=== PATIENT | female | born 1950 | race Caucasian/White ===

== ENCOUNTER 2017-08-15 17:50 | Inpatient (IN) | payer OTHER ==
[~2017-08-15] VITALS: Ht 162.6 cm; Wt 87.7 kg
[~2017-08-15 17:50] MED LIST: ACTOS15 MG PO; ALBUTEROL0.09 MG/A1 INH; BYDUREON P2 MG/0.65 SC; CLARITIN10 M1 PO; CRESTOR40 M2 PO; CYCLOBENZAPRINE10 M1 PO; FENOFIBRATE145 M1 PO; FISH OIL CONCEN1 SGL PO; FUROSEMIDE40 M1 PO; GLIPIZIDE ER2.5 MG PO; GLUCOPHAGE1000 M1 PO; IBUPROFEN800 M1 PO; JANUVIA100 M1 PO; JARDIANCE10 M1 PO; LASIX20 MG PO; LEVAQUIN500 MG PO; LISINOPRIL20 M1 PO; MUCINEX600 M1 PO; NORVASC5 M1 PO; POTASSIUM CHLO20 ME2 PO; TAMIFLU 75MG75 MG PO; TESSALON PERLE100 MG PO; ZITHROMAX Z-PA250 M1 PO
--- NOTE | 2017-08-15 17:59 | ED AMS/SEIZURE/WEAK/DIZZY ---
History of Present Illness General Chief Complaint: Altered Mental Status Stated Complaint: ALTERED MENTAL STATUS Source: patient, family, old records Exam Limitations: clinical condition Allergies Coded Allergies: adhesive (ITCHING 01/21/16) ampicillin (RASH 01/21/16) dulaglutide (From TRULICITY) (PANCREATITIS 08/15/17) lanolin (RASH 08/15/17) wool (RASH 08/15/17) Reconcile Medications Amlodipine Besylate (Norvasc) 5 MG TABLET 1 TAB PO DAILY BP (Reported) Beta-Carotene(A) W-C & E/Min (Vision Vitamins) 1 EACH TABLET 1 TAB PO BID SUPPLEMENT (Reported) Calcium Carbonate/Vitamin D3 (Calcium 500 + D Tablet) (Unknown Strength) TABLET (Unknown Dose) PO BID SUPPLEMENT (Reported) Clotrimazole/Betamethasone Dip (Clotrimazole-Betamethasone Crm) 1 %-0.05 % CREAM..G. 1 BERTIN TOP BID VAGINAL AREA (Reported) apply to affected area(s) Empagliflozin (Jardiance) 25 MG TABLET 1 TAB PO DAILY DM (Reported) Fenofibrate Nanocrystallized (Fenofibrate) 145 MG TABLET 1 TAB PO DAILY CHOLESTEROL (Reported) Furosemide 40 MG TABLET 1 TAB PO DAILY WATER PILL (Reported) Guaifenesin (Mucinex) 600 MG TAB.ER.12H 1 TAB PO BID MUCUS (Reported) Insulin Glargine,Hum.rec.anlog (Toujeo Solostar) 300 UNIT/ML (1.5 ML) INSULN.PEN 26 UNITS SC QPM DM (Reported) Lansoprazole (Prevacid) (Unknown Strength) CAPSULE.DR (Unknown Dose) PO DAILY GI (Reported) Lisinopril 40 MG TABLET 1 TAB PO DAILY BP (Reported) Loratadine (Claritin) 10 MG TABLET 1 TAB PO DAILY ALLERGIES (Reported) Metformin HCl (Glucophage) 1,000 MG TABLET 1 TAB PO BID DM (Reported) Multiple Vitamin (Multivitamins) 1 EACH TABLET 1 TAB PO DAILY SUPPLEMENT ( Reported) Potassium Chloride 20 MEQ TAB.ER.PRT 1 TAB PO DAILY SUPPLEMENT (Reported) Rosuvastatin Calcium (Crestor) 40 MG TABLET 1 TAB PO DAILY CHOLESTEROL ( Reported) Sitagliptin Phosphate (Januvia) 100 MG TABLET 1 TAB PO DAILY DM (Reported) Triage Note: PT ASSISTED OFF HER 'S CAR SHE IS UNABLE TO AMBULATE. BROUGHT HER IN FOR EVALUATION SECONDARY TO AMS X 2 DAYS NOW. Triage Nurses Notes Reviewed? yes Onset: Abrupt Duration: day(s): (2), constant, getting worse Timing: recent history Injury Environment: home Severity: severe Severity Numbers: 10 No Modifying Factors: none Associated Symptoms: DIARRHEA HPI: 67 Year old female with past medical history of diabetes, hypertension, pancreatitis, and hyperlipidemia presents to ER for evaluation brought in by her who noted that the patient has been more lethargic over the past 2 days. The patient's states that she is babysitting grandchildren yesterday however she was not caring for them as she normally was, again today they noted that she was lethargic and not caring for herself and she had diarrhea this is unlike her no history of similar episodes in the past. On arrival Medardo denies any complaints denies pain she is oriented times person only (Shamar Hou) Vital Signs & Intake/Output Vital Signs & Intake/Output Vital Signs Date Time Temp Pulse Resp B/P B/P Pulse O2 O2 Flow FiO2 Mean Ox Delivery Rate 08/15 2012 101.8 94 18 129/58 96 Nasal 2.0L Cannula 08/15 1906 102.6 08/15 1906 99 95 Nasal 2.0L Cannula 08/15 1831 Nasal 2.0L Cannula 08/15 1805 103.1 08/15 1753 103.1 111 15 164/69 89 Room Air (Dez Goncalves DO) Past History Travel History Traveled to [place] past 21 day No Medical History Any Pertinent Medical History? see below for history Cardiovascular: hypertension, hyperlipidemia Endocrine: diabetes Surgical History Surgical History: non-contributory Psychosocial History Who do you live with Spouse Services at Home None What is your primary language Turkish Tobacco Use: Never used Family History Hx Contributory? No (Shamar Hou) Review of Systems Review of Systems Constitutional: Reports: see HPI. Comments Review of systems: OBTAINED VIA Constitutional, no chills no fever, (+) malaise no weight loss HEENT: no sore throat no congestion, no ear pain Cardiovascular: No chest pain , no palpitation Skin: no rashes, no change in skin Respiratory: No dyspnea no cough GI: No nausea no vomiting, no diarrhea, no bloating/constipation : No dysuria No hematuria, no frequency Muscle skeletal: No joint pain, no back pain, no neck pain, Neurologic: , no headache Heme/endocrine: No bruising (Renita BUSH,Shamar) Physical Exam Physical Exam General Appearance: well developed/nourished, awake, lethargic Comments: Well-developed well-nourished person in moderate acute distress HEENT: Normal EENT exam; PERRL, EOMI, no nystagmus. HEAD is atraumatic. moist mucous membranes. Neck: Supple, no neck stiffness normal range of motion, negative Kernig's or Brudzinski's Back:Full range of motion Cardiovascular: Regular rate and rhythms no murmurs rub Respiratory: Chest nontender.There were no bony deformities, no asymmetry. No respiratory distress. Patient speaking in full complete sentences. Breath sounds clear to auscultation bilaterally: NO W/R/R Abdomen: Soft, nontender nondistended, no appreciable organomegaly. Normal bowel sounds. No rebound/guarding, No appreciable enlargement of the abdominal aorta, No ascites. Rectal: Guaiac negative brown stool Extremity: No edema, full range of motion of extremities, normal and equal pulses bilaterally, 5 out of 5 strength noted to bilateral upper and lower extremities Neuro: Alert oriented x1, motor sensory normal,. There were no obvious focal neurologic abnormalities. Skin: Legs covered in stool, No appreciable rash on exposed skin, skin is warm and dry. Psych: Mood and affect is normal, memory and judgment is normal. Core Measures ACS in differential dx? Yes CVA/TIA Diagnosis No Sepsis Present: No Sepsis Focused Exam Completed? No (Shamar Hou) Progress Differential Diagnosis: arrythmia, alcohol intoxication, anemia, dehydration, drug intoxication, encephalitis, electrolyte imbalance, GI bleed, hypoglycemia, hypoxia, intracranial Hem., intracranial mass/tumor, meningitis, pneumonia, postural hypotension, sepsis, seizure disorder, UTI/pyelo, vertebrobasilar insuff Diagnostic Imaging: Viewed by Me: Radiology Read, CT Scan. Discussed w/RAD: Radiology Read, CT Scan. Radiology Impression: PATIENT: MEDARDO KRAUSE PRESENT AGE: 67 PATIENT ACCOUNT NO: [id number] : 52 LOCATION: [facility] ORDERING PHYSICIAN: Shamar BUSH SERVICE DATE: 08/15/17 EXAM TYPE: CAT - CT HEAD WO IV CONTRAST EXAMINATION: CT HEAD WITHOUT CONTRAST CLINICAL INFORMATION: Mental status change COMPARISON: 01/21/2016 CT scan TECHNIQUE: Contiguous axial imaging was performed from the skull base to vertex without intravenous administration of contrast. DLP: 620.92 mGy-cm FINDINGS: There is no evidence of acute intracranial hemorrhage or territorial infarction. No abnormal mass effect or midline shift is seen. Cotto to white matter differentiation is well preserved. No extra-axial fluid collections are identified. The ventricles are normal in size. Atherosclerotic calcifications of the cavernous parts of the bilateral internal carotid arteries noted. The osseous structures and soft tissues are normal. The mastoid air cells and visualized portions of the paranasal sinuses are well aerated. IMPRESSION: No acute intracranial pathology. DICTATED BY: Miguel Angel Clark MD DATE/TIME DICTATED:08/15/171902 AIR TOOL OPERATOR:XIMENA DATE/TIME TRANSCRIBED:08/15/171902 CONFIDENTIAL, DO NOT COPY WITHOUT APPROPRIATE AUTHORIZATION. <Electronically signed in Other Vendor System> SIGNED BY: Miguel Angel Clark MD 08/15/171908, PATIENT: MEDARDO KRAUSE PRESENT AGE: 67 PATIENT ACCOUNT NO : [id number] : 52 LOCATION: [facility] ORDERING PHYSICIAN: Shamar BUSH SERVICE DATE: 08/15/17 EXAM TYPE: RAD - XRY-PORTABLE CHEST XRAY EXAMINATION : XR PORTABLE CHEST CLINICAL INFORMATION: Fever, mental status change COMPARISON : 06/12/2017 and 08/01/2014 x-ray TECHNIQUE: Portable AP view of the chest was obtained. FINDINGS: Hypoventilatory exam. The x-ray is taken with mild rotation toward the left side. There is mild cardiomegaly. Pulmonary venous congestion is noted. No overt pulmonary edema. No focal pulmonary consolidation, pleural effusion or pneumothorax. Degenerative changes of bilateral shoulder joints noted. IMPRESSION: Mild cardiomegaly and pulmonary venous congestion. No overt pulmonary edema. DICTATED BY: Miguel Angel Clark MD DATE/TIME DICTATED:08/15/171910 AIR TOOL OPERATOR:XIMENA DATE/TIME TRANSCRIBED:08/15/171910 CONFIDENTIAL, DO NOT COPY WITHOUT APPROPRIATE AUTHORIZATION. <Electronically signed in Other Vendor System> SIGNED BY: Miguel Angel Clark MD 08/15/171916 Initial ED EKG: STACH AT 100, ST SEG DEPRESSION V5, T WAVE INVERSION V6 Prior EKG: changed (2014) Rhythm Strip: normal sinus rhythm Hand-Off Endorsed To: Philipp UMANA,Won Chávez Endorsed Time: 2099 Pending: CT, labs (Renita BUSH,Shamar) Plan of Care: Orders Procedure Date/time Status LACTIC ACID 08/[address] ABD & PELVIS W/O IV CONTRAS 08/15 192 Active ACETONE 08/15 1801 Complete Grey, Insertion/Removal/Asses 08/15 1758 Active URINALYSIS 08/15 1757 Complete AMMONIA 08/15 1756 Complete ARTERIAL BLOOD GAS (GEN) 08/16 1755 Complete Saline Lock 08/16 1755 Active CULTURE,URINE 08/16 1755 Active BLOOD CULTURE 08/16 1755 Active URINE DRUG SCREEN FOR ER ONLY 08/16 1755 Complete TROPONIN LEVEL 08/16 1755 Complete LACTIC ACID 08/16 1755 Complete ETHANOL 08/16 1755 Complete COMPREHENSIVE METABOLIC PANEL 08/16 1755 Complete CBC WITHOUT DIFFERENTIAL 08/16 1755 Complete EKG 08/15 1754 Active Laboratory Tests 08/15/175: Lactic Acid 0.8 08/15/17 182: Ammonia < 9 L 08/15/17 182: pH 7.45, pCO2 25 L, pO2 93, HCO3 18 L, ABG O2 Sat (Measured) 97.0, Carboxyhemoglobin 0.5 L, O2 Concentration % 2L, O2 Delivery Method NC, Phlebotomy Draw Site RIGHT RADIAL 08/15/171810: Urine Opiates Screen < 100, Methadone Screen < 40, Barbiturate Screen < 60, Ur Phencyclidine Scrn < 6.00, Amphetamines Screen < 100, U Benzodiazepines Scrn < 85, Urine Cocaine Screen < 50, Urine Cannabis Screen < 5.00, Urinalysis MOD H, Urine Color YEL, Urine Clarity CLEAR, Urine pH 6.0, Ur Specific [place] 1.020, Urine Protein 100 H, Urine Ketones NEG, Urine Nitrite NEG, Urine Bilirubin NEG, Urine Urobilinogen 0.2, Ur Leukocyte Esterase NEG, Ur Microscopic SEDIMENT EXAMINED, Ur Epithelial Cells RARE, Urine Hemoglobin NEG, Urine Glucose >=1000 H 08/15/171801: Acetone Level Cancelled 08/15/171801: Anion Gap 16, Estimated GFR 45 L, BUN/Creatinine Ratio 27.5 H, Glucose 377 H, Lactic Acid 2.4 H, Calcium 8.3 L, Total Bilirubin 0.6, AST 29, ALT 31, Alkaline Phosphatase 74, Troponin I 0.04, Total Protein 6.5, Albumin 3.5, Globulin 3.0, Albumin/Globulin Ratio 1.2, CBC w Diff NO MAN DIFF REQ, RBC 4.86, MCV 71.2 L, MCH 22.9 L, MCHC 32.1 L, RDW 18.8 H, MPV 8.1, Gran % 69.2, Lymphocytes % 15.1 L, Monocytes % 15.4 H, Eosinophils % 0.1, Basophils % 0.2, Absolute Granulocytes 3.0, Absolute Lymphocytes 0.7 L, Absolute Monocytes 0.7 H, Absolute Eosinophils 0, Absolute Basophils 0, Serum Alcohol < 10.0, Acetone Level NEGATIVE Microbiology 08/15 1824 BLOOD: Blood Culture - RECD 08/15 1810 URINE ROUT: Urine Culture - RECD 08/15 1801 BLOOD: Blood Culture - RECD LABS ORDERED, IV FLUIDS, IV TYLENOL VANCO FORTAZ ORDERED. CASE D/W DR GONCALVES AGREES WITH PLAn Gentle hydration instituted given chest x-ray findings-pulm vasc congestion 08/15/2017 7:26:54 PM patient alert and oriented 3 at this time, awake, appears much improved with fluids antibiotics are running Dr. Segal in room to evaluate patient, patient states she's had diarrhea for the past 2 days feeling nauseous no vomiting. Abdomen remains soft nontender CAT scan without contrast of abdomen pelvis ordered 08/15/2017 8:36:37 PM discussed with the patient and her all her labs CAT scan results, pending CAT scan of the abdomen really is more awake and alert at this time resting comfortably, Dr. Segal was in to evaluate the patient and agrees with plan. 2100 case discussed with and signed out to Dr. Segal pending CAT scan of the abdomen results (Renita BUSH,Shamar) (Manuel JAIN,Dez Schreiber) Radiology Impression: colitis,? ileus, splenomegaly Comments: Case was discussed with Dr. Garcia who will consult on her given the EKG changes. (Philipp UMANA,Won Chávez) ED Sepsis Exam Date of Focused Sepsis Exam: 08/15/17 Time of Focused Sepsis Exam: 1805 Sepsis Cardiac Exam: Tachycardia Sepsis Resp Exam: CTA Sepsis Cap Refill Exam: <2 Sec Sepsis Peripheral Pulse Exam: Normal Sepsis Peripheral Pulse Location: Radial Sepsis Skin Color Exam: Pale Skin Temp/Moisture Exam: Warm/Dry (Shamar Hou) Departure Departure Disposition: STILL A PATIENT Condition: Stable Referrals: Marni UMANA,Jim Serrano (PCP/Family) Departure Forms: Customer Survey General Discharge Information (Shamar Hou) PA/MANAGER DEVELOPMENT Co-Sign Statement Statement: ED Attending supervision documentation- [x] I saw and evaluated the patient. I have also reviewed all the pertinent lab results and diagnostic results. I agree with the findings and the plan of care as documented in the PA's/MANAGER DEVELOPMENT's documentation. [] I have reviewed the ED Record and agree with the PA's/MANAGER DEVELOPMENT's documentation. [] Additions or exceptions (if any) to the PAs/MANAGER DEVELOPMENT's note and plan are summarized below: [] 08/15/17 6:40 PM 67-year-old female presents to the emergency department for massive diarrhea and lethargy. I've seen and personally examined the patient and I agree with the PAs evaluation. She is hypotensive but oriented 3 but slow to respond. Abdomen is soft and nontender. Oxygen saturation currently 91%. She is receiving IV fluids. Labs and CT are pending. (Manuel JAIN,Dez Schreiber) Departure Clinical Impression Primary Impression: Lactic acidosis Secondary Impressions: Acute electrocardiogram changes, Colitis, Diarrhea, Fever , Uncontrolled diabetes mellitus Admission Note Spoke With: Vic UMANA,[facility] Documentation of Exam: Documentation of any treatments & extenuating circumstances including Concerns Regarding Discharge (functional status, medication knowledge or non-compliance, living conditions, etc.) that warrant an admission rather than observation: [ Broad-spectrum antibiotics, follow-up cultures, ID consult, follow-up stool, cardiology consultation, telemetry monitoring with serial enzymes, patient are has vascular congestion seen on chest x-ray so unable to give the aggressive fluid bolus.] PA/MANAGER DEVELOPMENT Co-Sign Statement Statement: ED Attending supervision documentation- [X] I saw and evaluated the patient. I have also reviewed all the pertinent lab results and diagnostic results. I agree with the findings and the plan of care as documented in the PA's/MANAGER DEVELOPMENT's documentation. [X] I have reviewed the ED Record and agree with the PA's/MANAGER DEVELOPMENT's documentation. [] Additions or exceptions (if any) to the PAs/MANAGER DEVELOPMENT's note and plan are summarized below: [Patient is currently alert and oriented 3. There is no nuchal rigidity. There are no signs of encephalitis. Patient has had profuse diarrhea for the past 2 days. Patient is awaiting a CAT scan. Patient will require admission.] (Philipp UMANA,Won Chávez) Critical Care Note Critical Care Note Critical Care Time: 30-74 min (Shamar Hou) summarized below: [Patient is currently alert and oriented 3. There is no nuchal rigidity. There are no signs of encephalitis. Patient has had profuse diarrhea for the past 2 days. Patient is awaiting a CAT scan. Patient will require admission.] (Philipp UMANA,Won Chávez) Critical Care Note Critical Care Note Critical Care Time: 30-74 min (Shamar Hou)
[2017-08-15 18:13] LABS: ABSOLUTE BASOPHIL COUNT 0 /CUMM (0.0-0.2); ABSOLUTE EOSINOPHIL COUNT 0 /CUMM (0.0-0.7); ABSOLUTE LYMPH COUNT 0.7 /CUMM (1.2-3.4); ABSOLUTE MONOCYTE COUNT 0.7 /CUMM (0.10-0.60); BASOPHIL % 0.2 % (0.0-2.0); EOSINOPHIL % 0.1 % (0-5); GRANULOCYTE % 69.2 % (42.2-75.2); HEMATOCRIT 34.6 % (37-47); MEAN CORPUSCULAR HGB 22.9 PG (27.0-31.0); MEAN CORPUSCULAR HGB CONC 32.1 G/DL (33.0-37.0); MEAN CORPUSCULAR VOLUME 71.2 FL (81.0-99.0); MEAN PLATELET VOLUME 8.1 FL (7.4-10.4); PLATELET COUNT 231 /CUMM (130-400); RBC DISTRIBUTION WIDTH 18.8 % (11.5-14.5); RED BLOOD CELL CT 4.86 /CUMM (4.20-5.40); WHITE BLOOD CELL COUNT 4.4 /CUMM (4.8-10.8)
--- NOTE | 2017-08-15 19:09 | CT SCAN REPORT ---
EXAMINATION: CT HEAD WITHOUT CONTRAST CLINICAL INFORMATION: Mental status change COMPARISON: 01/21/2016 CT scan TECHNIQUE: Contiguous axial imaging was performed from the skull base to vertex without intravenous administration of contrast. DLP: 620.92 mGy-cm FINDINGS: There is no evidence of acute intracranial hemorrhage or territorial infarction. No abnormal mass effect or midline shift is seen. Cotto to white matter differentiation is well preserved. No extra-axial fluid collections are identified. The ventricles are normal in size. Atherosclerotic calcifications of the cavernous parts of the bilateral internal carotid arteries noted. The osseous structures and soft tissues are normal. The mastoid air cells and visualized portions of the paranasal sinuses are well aerated. IMPRESSION: No acute intracranial pathology.
--- NOTE | 2017-08-15 19:17 | RADIOLOGY REPORT ---
EXAMINATION: XR PORTABLE CHEST CLINICAL INFORMATION: Fever, mental status change COMPARISON: 06/12/2017 and 08/01/2014 x-ray TECHNIQUE: Portable AP view of the chest was obtained. FINDINGS: Hypoventilatory exam. The x-ray is taken with mild rotation toward the left side. There is mild cardiomegaly. Pulmonary venous congestion is noted. No overt pulmonary edema. No focal pulmonary consolidation, pleural effusion or pneumothorax. Degenerative changes of bilateral shoulder joints noted. IMPRESSION: Mild cardiomegaly and pulmonary venous congestion. No overt pulmonary edema.
[2017-08-15] MEDS ORDERED: CLOTRIMAZOLE-BE15 GM TOP (20:21)
[2017-08-15] MEDS ORDERED: JARDIANCE25 M1 PO (20:22)
[2017-08-15] MEDS ORDERED: TOUJEO SOL300 UNIT/1 SC (20:23)
[2017-08-15] MEDS ORDERED: VISION VITAMIN1 EACH PO (20:28)
[2017-08-15] MEDS ORDERED: CALCIUM 500 +1 EAC5 PO (20:28)
[2017-08-15] MEDS ORDERED: MULTIVITAMINS1 EAC9 PO (20:29)
[2017-08-15] MEDS ORDERED: PREVACID15 M1 PO (20:29)
[2017-08-15] MEDS ORDERED: LISINOPRIL40 M1 PO (20:30)
--- NOTE | 2017-08-15 22:44 | CT SCAN REPORT ---
EXAMINATION: CT ABD PELVIS W/O IV CONTRAS CLINICAL INFORMATION: Presumptive Dx: RO COLITIS, DIVERTICULIIITS
Signs Symptoms: DIARRHEA, FEVER, AMS
COMPARISON: None TECHNIQUE: Multidetector volumetric imaging was performed from the superior aspect of the liver through the pubic symphysis Study done without contrast. Sagittal and coronal reformatted images were obtained on the technologist's workstation. DLP: 1284 mGy-cm FINDINGS: LOWER THORAX: Included lung bases are clear. HEPATOBILIARY: Evaluation of the liver is limited on noncontrasted study GALLBLADDER: Gallbladder has been removed SPLEEN: Spleen is enlarged measuring 13.6 x 6.6 cm. PANCREAS: No focal mass or ductal dilatation. STOMACH AND GASTROINTESTINAL TRACT: Stomach is grossly unremarkable. There is diffuse dilatation of small bowel loops throughout the abdomen without a transition zone suggesting an ileus. There is diffuse thickening of the cohen of the colon especially on the RIGHT side suggesting colitis. Nonspecific. There are increased number of mesenteric lymph nodes some of which are mildly enlarged. No CT evidence of appendicitis. ADRENALS: No adrenal nodules. KIDNEYS/URETERS: There is a 2 mm nonobstructing stone lower calyx LEFT kidney. There is no hydronephrosis. URINARY BLADDER: There is a Grey catheter in the bladder. The bladder is decompressed unopacified. PELVIC VISCERA: Unremarkable PERITONEUM: No free air or fluid. LYMPH NODES: Retroperitoneal lymph nodes are normal in size by CT criteria. VASCULAR: Heavy vascular calcification of the aorta. No aneurysm. BONES, ABDOMINAL WALL AND SOFT TISSUES: Age-appropriate changes of the spine and skeletal system, no destructive osteolytic or osteosclerotic bone lesion found IMPRESSION: 1. Thickening of the wall of the RIGHT colon cecum, ascending colon and portion of the transverse colon combined with mild pericolic fat stranding suggesting COLITIS. NONSPECIFIC, THIS COULD BE INFLAMMATORY, INFECTIOUS OR ISCHEMIC. 2. Diffusely dilated small bowel loops without a transition zone suggesting an ILEUS. 3. Other findings include tiny nonobstructing LEFT kidney stone, splenomegaly, heavy vascular calcification of the aorta, mildly enlarged prominent mesenteric lymph nodes. This might be reactive. Age-appropriate degenerative changes of the spine an Grey catheter.. (Referring physician will be called, alerted of the above findings and recommendations. )
--- NOTE | 2017-08-15 23:43 | History & Physical ---
Subhash UMANA,Nicola 08/15/17 2343: General Information and HPI History of Present Illness: Ms. Camarillo is a 67-year-old female with past medical history of hyperlipidemia, hypertension, diabetes mellitus, and drug-induced pancreatitis who presents with lethargy. Patient was unable to give history dueto her medical condition. History was obtained from her , Chaz. According to him, the patient was previously well until 2 days ago. She was babysitting her grandchild and became overheated. She went inside and took a nap. A few hours later, her daughter found her to be lethargic and was wondering whether she was dehydrated. The daughter gave her water and Gatorade. Then last night, patient continued to feel lethargic and went to bed. When she woke up this morning, she was even more lethargic and she had soiled herself. She took a shower and had some eggs. She then went to the emergency room for further evaluation. The notes that she additionally has had 3-4 episodes of nonbloody diarrhea. He also notes that she has had a 10 pound weight loss in the past 4-5 months and has missed her medications in the past day. He denies her having any nausea, vomiting, abdominal pain, dysuria, cough, shortness of breath, or sick contacts. She has had no recent hospitalizations. Allergies/Medications Allergies: Coded Allergies: adhesive (ITCHING 01/21/16) ampicillin (RASH 01/21/16) dulaglutide (From [facility]) (PANCREATITIS 08/15/17) lanolin (RASH 08/15/17) wool (RASH 08/15/17) Past History Travel History Traveled to [place] past 21 day No Medical History Cardiovascular: hypertension, hyperlipidemia Endocrine: diabetes Surgical History Surgical History: non-contributory Past Family/Social History Psychosocial History Services at Home: None Review of Systems Review of Systems Constitutional: Reports: see HPI. EENTM: Reports: no symptoms. Cardiovascular: Reports: no symptoms. Respiratory: Reports: no symptoms. GI: Reports: see HPI. Genitourinary: Reports: no symptoms. Musculoskeletal: Reports: no symptoms. Skin: Reports: no symptoms. Neurological/Psychological: Reports: no symptoms. Hematologic/Endocrine: Reports: no symptoms. Immunologic/Allergic: Reports: no symptoms. All Other Systems: Reviewed and Negative Exam & Diagnostic Data Last 24 Hrs of Vital Signs/I&O Vital Signs Date Time Temp Pulse Resp B/P B/P Pulse O2 O2 Flow FiO2 Mean Ox Delivery Rate 08/15 2338 104.9 114 21 174/74 95 Nasal 2.0L Cannula 08/15 2012 101.8 94 18 129/58 96 Nasal 2.0L Cannula 08/15 1905 102.6 08/15 190 99 95 Nasal 2.0L Cannula 08/15 1831 Nasal 2.0L Cannula 08/15 180 103.1 08/15 175 103.1 111 15 164/69 89 Room Air Physical Exam General Appearance lethargic but oriented Skin No Rashes Skin Temp/Moisture Exam: Hot/Diaphoretic Sepsis Skin Exam (color): Normal for Ethnicity HEENT Atraumatic, PERRLA, dry mucous membranes Cardiovascular Regular Rate, Normal S1, Normal S2, harsh systolic murmur Lungs crackles L>R base Abdomen distended, nontender, no masses, no bowel sounds Extremities Normal Pulses, 2+ pitting edema Sepsis Peripheral Pulse Location: Dorsalis Pedis Sepsis Peripheral Pulse Exam: Normal Sepsis Cap Refill Exam: <2 Sec Last 24 Hrs of Labs/Chano: Laboratory Tests 08/15/172104: Lactic Acid 0.8 08/15/171824: Ammonia < 9 L 08/15/171819: pH 7.45, pCO2 25 L, pO2 93, HCO3 18 L, ABG O2 Sat (Measured) 97.0, Carboxyhemoglobin 0.5 L, O2 Concentration % 2L, O2 Delivery Method NC, Phlebotomy Draw Site RIGHT RADIAL 08/15/171810: Urine Opiates Screen < 100, Methadone Screen < 40, Barbiturate Screen < 60, Ur Phencyclidine Scrn < 6.00, Amphetamines Screen < 100, U Benzodiazepines Scrn < 85, Urine Cocaine Screen < 50, Urine Cannabis Screen < 5.00, Urinalysis MOD H, Urine Color YEL, Urine Clarity CLEAR, Urine pH 6.0, Ur Specific [place] 1.020, Urine Protein 100 H, Urine Ketones NEG, Urine Nitrite NEG, Urine Bilirubin NEG, Urine Urobilinogen 0.2, Ur Leukocyte Esterase NEG, Ur Microscopic SEDIMENT EXAMINED, Ur Epithelial Cells RARE, Urine Hemoglobin NEG, Urine Glucose >=1000 H 08/15/171801: Acetone Level Cancelled 08/15/171801: Anion Gap 16, Estimated GFR 45 L, BUN/Creatinine Ratio 27.5 H, Glucose 377 H, Lactic Acid 2.4 H, Calcium 8.3 L, Total Bilirubin 0.6, AST 29, ALT 31, Alkaline Phosphatase 74, Troponin I 0.04, Total Protein 6.5, Albumin 3.5, Globulin 3.0, Albumin/Globulin Ratio 1.2, CBC w Diff NO MAN DIFF REQ, RBC 4.86, MCV 71.2 L, MCH 22.9 L, MCHC 32.1 L, RDW 18.8 H, MPV 8.1, Gran % 69.2, Lymphocytes % 15.1 L, Monocytes % 15.4 H, Eosinophils % 0.1, Basophils % 0.2, Absolute Granulocytes 3.0, Absolute Lymphocytes 0.7 L, Absolute Monocytes 0.7 H, Absolute Eosinophils 0, Absolute Basophils 0, Serum Alcohol < 10.0, Acetone Level NEGATIVE Microbiology 08/15 2346 STOOL: Clostridium difficile Toxin A & B - ORD 08/15 234 STOOL: Stool Culture - ORD 08/15 182 BLOOD: Blood Culture - RECD 08/15 1810 URINE ROUT: Urine Culture - RECD 08/15 1801 BLOOD: Blood Culture - RECD Assessment/Plan Assessment: Ms. Camarillo is a 67-year-old female with past medical history of hyperlipidemia, hypertension, diabetes mellitus, and drug-induced pancreatitis who presents with lethargy. On presentation, vital signs were T 103.1, HR 111, RR 15, BP 164/69, saturating 89% on room air. Laboratories are significant for white blood cell count 4.4, hemoglobin 11.1, sodium 133, carbon dioxide 19, BUN 33, creatinine 1.2 (baseline 0.7), glucose 377, lactic acid 2.4, calcium 8.3, albumin 3.5, negative LFTs, troponin 0 0.04, and ammonia less than 9, ABG showing low carbon dioxide. Urinalysis shows 100 protein and greater than thousand glucose. Chest x-ray shows pulmonary vascular congestion. CT head was negative. CT abdomen/pelvis shows thickening of the wall of the right colon, ascending colon, and portion of the transverse colon combined with mild pericolic fat stranding suggesting colitis, potentially inflammatory versus infectious versus ischemic. It also showed findings suggesting an ileus and a tiny nonobstructing left kidney stone, splenomegaly, vascular calcification of the aorta, and mildly enlarged prominent mesenteric lymph nodes. She will be admitted to telemetry and treated for the following problems: 1. Acute hypoxic respiratory failure 2. Sepsis with lactic acidosis 3. Colitis 4. Acute kidney injury 5. Hyperglycemia 6. Hyponatremia 7. EKG changes 8. Microcytic anemia #Colitis: Patient presents with history of diarrhea and lethargy with 3/4 SIRS criteria (fever, tachycardia, leukopenia) and lactic acidosis. Imaging suggests colitis. GCS is 11, SOFA score 3. We must be careful hydrating her given that the x-ray shows pulmonary vascular congestion. She does not have a history of CHF but exam revealed a systolic murmur. -IV fluid hydration, gentle -TTE -Panculture including C. difficile -Ceftriaxone and metronidazole -Trend lactic acid -N.p.o. while lethargic -Hold antihypertensives/diuretics #EKG changes: Initial EKG shows ST segment depression in V5 and T-wave inversion in V6. Prior EKG showed normal sinus rhythm. Initial troponin was 0.04. -Trend EKG and troponins -Cardiology consult -Telemetry monitoring #Acute kidney injury: Likely prerenal azotemia in the setting of sepsis. -Hydration as above -Avoid nephrotoxins #Hyperglycemia: Patient has history of diabetes mellitus but has not been managing her medications well the past day or so. No anion gap or sign of DKA at this time. -Hold oral hypoglycemics -Detemir plus n.p.o. insulin sliding scale -Accu-Cheks every 6 hours #Hyponatremia: Mild, likely related to dehydration. -Hydration as above -Continue to monitor #Microcytic anemia: No signs of active bleeding. -Iron studies #Chronic medical problems: -Holding oral medications DVT prophylaxis with heparin N.p.o. Full code As Ranked By This Provider Problem List: 1. Colitis Core Measures/Misc (12/07) Acute Coronary Syndrome ACS Diagnosis: No Congestive Heart Failure Congestive Heart Failure Diagnosis No Cerebrovascular Accident CVA/TIA Diagnosis: No VTE (View Protocol) VTE Risk Factors Age>40 No Mechanical VTE Prophylaxis d/t N/A MechProphylax Ordered No VTE Pharm Prophylaxis d/t NA PharmProphylax ordered Sepsis (View protocol) Sepsis Present: Yes If YES complete Sepsis Event Note If YES complete Sepsis Event Note Shamar Parsons 08/16/17 0012: General Information and HPI Allergies/Medications Home Med list Amlodipine Besylate (Norvasc) 5 MG TABLET 1 TAB PO DAILY BP (Reported) This medication is not on the patient list but was filled recently August 01 confirm if she is taking Beta-Carotene(A) W-C & E/Min (Vision Vitamins) 1 EACH TABLET 1 TAB PO BID SUPPLEMENT (Reported) Calcium Carbonate/Vitamin D3 (Calcium 500 + D Tablet) (Unknown Strength) TABLET (Unknown Dose) PO BID SUPPLEMENT (Reported) Clotrimazole/Betamethasone Dip (Clotrimazole-Betamethasone Crm) 1 %-0.05 % CREAM..G. 1 BERTIN TOP BID VAGINAL AREA (Reported) apply to affected area(s) Empagliflozin (Jardiance) 25 MG TABLET 1 TAB PO DAILY DM (Reported) Empagliflozin (Jardiance) 10 MG TABLET 25 TAB PO DAILY dm Fenofibrate Nanocrystallized (Fenofibrate) 145 MG TABLET 1 TAB PO DAILY CHOLESTEROL (Reported) Furosemide 40 MG TABLET 1 TAB PO DAILY WATER PILL (Reported) Guaifenesin (Mucinex) 600 MG TAB.ER.12H 1 TAB PO BID MUCUS (Reported) Insulin Glargine,Hum.rec.anlog (Toujeo Solostar) 300 UNIT/ML (1.5 ML) INSULN.PEN 26 UNITS SC QPM DM (Reported) Lansoprazole (Prevacid) (Unknown Strength) CAPSULE.DR (Unknown Dose) PO DAILY GI (Reported) Lisinopril 40 MG TABLET 1 TAB PO DAILY BP (Reported) Loratadine (Claritin) 10 MG TABLET 1 TAB PO DAILY ALLERGIES (Reported) Metformin HCl (Glucophage) 1,000 MG TABLET 1 TAB PO BID DM (Reported) Multiple Vitamin (Multivitamins) 1 EACH TABLET 1 TAB PO DAILY SUPPLEMENT ( Reported) Potassium Chloride 20 MEQ TAB.ER.PRT 1 TAB PO DAILY SUPPLEMENT (Reported) Rosuvastatin Calcium (Crestor) 40 MG TABLET 1 TAB PO DAILY CHOLESTEROL ( Reported) Core Measures/Misc (12/07) Sepsis (View protocol) If YES complete Sepsis Event Note If YES complete Sepsis Event Note Resident Review Statement Resident Statement: examined this patient, discussed with chemistry intern, agreed with chemistry intern, discussed with family, reviewed EMR data (avail), reviewed images Other Findings: This is a 67 years old lady with past medical history of diabetes mellitus on oral medications, hypertension hyperlipidemia who is presenting with 2 day history of altered mental status where the patient is less responsive than usual. The patient was well and 2 days ago she went to take care of her son they spent quite some time outside and per he thinks that the patient got overheated from there on once the patient was not feeling well becoming less and less responsive had an episode of fever which was not measured any nausea or vomiting but he reported to have diarrhea about 3 motions per day which was nonbloody. Patient was noted to have reduced appetite getting more weak and needed support to the walk to the bathroom. denies any report of abdominal pain he has not consumed any antibiotics lately and has no cough or sick contacts patient has not been hospitalized recently. Per she has no history of pain when micturating and she has been fairly healthy. Patient has not changed medication recently. On arrival the patient was febrile 103F tachycardic at 111 respiration of 15 and blood pressure 164/69 saturating 89% on room Physical examination: Patient is minimally responsive although can't state that is in [facility] on and off sleeping during the interview could not answer any questions substantially. Head and neck: Pupils are bilaterally equal and reacting to light, soft neck and no raised JVD Chest: Bilateral crackles more dominant in the bases CVS: Regular rate and rhythm there is a systolic murmur 2 out of 6 more prominent in the aortic area Abdomen: Obese abdomen slightly distended soft nontender moving with respiration Extremities: No edema no cyanosis Labs: Lowe white count 4.4 H&H 11.1 and 34.6 with MCV of 71.2, slightly increased creatinine of 1.2 baseline is 0.7 GFR of 45 negative troponin elevated proBNP of 761, clean urine slight lactic acidosis of 2.4 corrected after fluids EKG: ST wave depression in V4 to 6 CT of head no acute pathology CXR mild cardiomegaly and pulmonary vessel congestion CT abdomen:Thickening of the wall of the RIGHT colon cecum, ascending colon and portion of the transverse colon combined with mild pericolic fat stranding suggesting COLITIS. NONSPECIFIC, THIS COULD BE INFLAMMATORY, INFECTIOUS OR ISCHEMIC. Assessment and plan This is a 67 years old lady with diabetes mellitus hypertension and hyperlipidemia who is presenting with 2 days of altered mental status decreases oral intake diarrhea and significant exposure to heat with probable dehydration and found to have a colitis picture on CT abdomen with mild lactic acidosis and I am slight increase in creatinine. Patient was significantly febrile on presentation. The colitis can be inflammatory most likely due to viral infection but also can be ischemic given her presentation of dehydration with ANIBAL picture. Acute kidney injury Colitis Lactic acidosis Diabetes mellitus Microcytic anemia Will admit the patient to telemetry floor continue with cardiac monitoring Vitals every shift Troponin and EKG complete 3 sets Cardiology consult a.m. Echocardiogram Mac culture of blood urine and stool, stool for C. difficile Cover patient with broad antibiotics ceftriaxone and Flagyl Keep the patient nothing by mouth till when more communicative Swallow evaluation before starting feeding Hold all home medications and keep the patient on insulin sliding scale for nothing by mouth Iron studies Accu-Cheks every 6 hours IV fluid normal saline at 75 mL per consider adjusting to normal saline with D5 if sugar on the low side Patient is full code Heparin for DVT prophylaxis Vic UMANA, [facility] 08/16/17 0350: Core Measures/Misc (12/07) Sepsis (View protocol) If YES complete Sepsis Event Note If YES complete Sepsis Event Note Attending MD Review Statement Attending Statement Attending MD Statement: examined this patient, discuss w/resident/PA/TRAFFIC WORKFORCE REPRESENTATIVE, agreed w/resident/PA/TRAFFIC WORKFORCE REPRESENTATIVE, discussed with family, reviewed images, amended to note Attending Assessment/Plan: 67 yo F with h/o T2DM, HTN, HLD, chronic sinusitis, previous drug induced pancreatitis, is brought in by for evaluation of 2-day h/o lethargy, confusion, poor appetite and profuse diarrhea. states, patient was absolutely normal 2 days ago, was baby sitting her grandson and thinks she may have gotten ?overheated/ dehydrated. Over the next day she was more lethargic, drank minimal fluids and required maximum assistance to even get to the bathroom. was able to give her meds one day prior but she was less responsive today and could not even take her meds. She started having watery nonbloody diarrhea over past 2-3 days about 3 or more episodes per day. She did not have any nausea, vomiting or abdominal pain. She was warm to touch but did not check her temperature. No recent antibiotic use, no sick contacts, no new medications and no uncooked food intake. notes that abdomen is distended but he reports that patient has lost about 10 lbs in 3-4 months (intentional), and her abdomen is more prominent since. Vitals: Tmax 104.9, tachycardic 100-110's, BP 151/65, sats 89% RA --> 92-95% on 2L. Exam: patient is very lethargic and minimally responsive. She follows a few commands but is not able to verbalize. Dry mucosa+, skin warm and dry, Neck supple, capillary refill ~ 2 secs, Chest: bibasilar crackles+, Heart S1S2 regular, tachycardic, systolic murmur+, Abdomen: soft, distended, sluggish bowel sounds heard, LE: no edema. Labs: WBC 4.4, microcytic anemia, H/H 11.1/34.6, Plt 231, Na 133, bicarb 19, BUN 33, creat 1.2 (baseline 0.6), glucose 377, lactic acid 2.4, LFTs normal, trop neg, lipase neg. UA proteinuria, glucose >1000. Urine tox negative. Acetone negative. Alcohol < 10. Ammonia <9. AB.45/25/93/18. CXR: mild cardiomegaly and pulmonary venous congestion. No overt edema. CT head: no acute pathology. CT abd/pelvis: thickening of right colon, cecum, ascending colon and transverse colon suggesting colitis. Diffusely dilated small bowel loops without a transition zone suggesting ileus. EKG: sinus tachycardia, LAD, ST depression and TWI in V4-6, I and aVL (new). Assessment and plan: 1. Severe sepsis 2. Acute infectious colitis, rule out Cdiff 3. Acute hypoxic respiratory failure in the setting of sepsis 4. CXR s/o pulmonary congestion but no in florid edema 5. ANIBAL 6. Lactic acidosis 7. Hyperglycemia in this patient with T2DM, not in HHS or DKA 8. Acute EKG changes 9. Microcytic anemia - Admit to Telemetry - Fall, aspiration precautions - Neurochecks - Strict I/O's - NPO - Serial abdomen exams - Panculture, check stool Cdiff, culture and ova-parasite - IV ceftriaxone and IV Flagyl to continue - IV hydration, trend lactic acid and renal functions - Monitor respiratory status, avoid fluid overload - Obtain echocardiogram - I am concerned about Cdiff although no recent antibiotic exposure, will check for stool Cdiff or PCR and consider initiating PO Vancomycin. Currently patient unable to take by mouth due to severe lethargy. - Consider ID consult - Serial EKG and troponin - Cardio consult in AM - Watch for arrhythmias - Accuchecks Q6, insulin NPO SS. - Hold off all home meds toujeo, metformin, prevacid, crestor, jardiance, furosemide, lisinopril and fenofibrate. - Work up anemia DVT ppx Hep SC. Full code. Discussed in detail with at bedside.
[2017-08-16] MEDS ORDERED: JARDIANCE10 M1 PO (00:29)
[2017-08-16 01:53] VITALS: BP 120/44
--- NOTE | 2017-08-16 03:51 | Admission Certification ---
Admission Certification Certification Statement - As attending physician, I certify that at the time of - admission, based on clinical presentation, severity of - symptoms, need for further diagnostic testing and - therapeutic interventions, and risk of adverse outcomes - without in-hospital treatment, in my clinical assessment, - this patient requires an acute hospital stay for a minimum - of two nights or longer. I have also considered psychsocial - factors such as support system, advanced age, financial - issues, cognitive issues, and failed out-patient treatments, - past re-admission history, safety of patient, and lack of - compliance as applicable. Specific rationale supporting this admission is: Colitis, acute EKG changes.
[2017-08-16 06:19] LABS: ABSOLUTE BASOPHIL COUNT 0 /CUMM (0.0-0.2); ABSOLUTE EOSINOPHIL COUNT 0 /CUMM (0.0-0.7); ABSOLUTE GRANULOCYTE CT 2.6 /CUMM (1.4-6.5); ABSOLUTE LYMPH COUNT 0.5 /CUMM (1.2-3.4); ABSOLUTE MONOCYTE COUNT 0.5 /CUMM (0.10-0.60); BASOPHIL % 0.3 % (0.0-2.0); EOSINOPHIL % 0.3 % (0-5); GRANULOCYTE % 71.4 % (42.2-75.2); HEMATOCRIT 29.8 % (37-47); MEAN CORPUSCULAR HGB 23.4 PG (27.0-31.0); MEAN CORPUSCULAR HGB CONC 32.7 G/DL (33.0-37.0); MEAN CORPUSCULAR VOLUME 71.4 FL (81.0-99.0); MEAN PLATELET VOLUME 8.8 FL (7.4-10.4); PLATELET COUNT 161 /CUMM (130-400); RBC DISTRIBUTION WIDTH 18.9 % (11.5-14.5); RED BLOOD CELL CT 4.17 /CUMM (4.20-5.40); WHITE BLOOD CELL COUNT 3.6 /CUMM (4.8-10.8)
[2017-08-16 08:00] VITALS: BP 110/42
--- NOTE | 2017-08-16 08:58 | PN- Housestaff ---
Subjective Follow-up For: Diarrhea Fever Subjective: Seen and examined at bedside today. She states "I feel way better today compared to yesterday". She is requesting to eat. Currently does not endorse any symptoms such as abdominal pain, chills, shortness of breath, chest pain, palpitation. Overnight report indicated the patient has been febrile during the night had a MAXIMUM TEMPERATURE of 103 early in the morning today, Review of Systems Constitutional: Reports: see HPI. Objective Last 24 Hrs of Vital Signs/I&O Vital Signs Date Time Temp Pulse Resp B/P B/P Pulse O2 O2 Flow FiO2 Mean Ox Delivery Rate 08/16 08 95 Nasal 2.0L Cannula 08/16 0800 100.4 89 20 110/42 95 Nasal 2.0L Cannula 08/16 0539 101.3 08/16 0509 103.3 08/16 0215 92 Nasal 2.0L Cannula 08/16 0156 95 Nasal 2.0L Cannula 08/16 0153 102.2 102 26 120/44 95 Nasal 2.0L Cannula 08/16 0117 102.8 105 22 151/65 96 Nasal 2.0L Cannula 08/16 0055 103.6 08/16 0032 104.0 08/15 2338 104.9 114 21 174/74 95 Nasal 2.0L Cannula 08/15 2013 101.8 94 18 129/58 96 Nasal 2.0L Cannula 08/15 1906 102.6 08/15 1906 99 95 Nasal 2.0L Cannula 08/15 1831 Nasal 2.0L Cannula 08/15 1805 103.1 08/15 1753 103.1 111 15 164/69 89 Room Air Intake & Output 08/16 1600 08/16 0800 08/16 0000 Intake Total 418 Output Total 1200 700 Balance -782 -700 Intake, IV 418 Intake, Oral 0 Output, Stool 700 Output, Urine 500 700 Patient 87.572 kg 85.275 kg Weight Weight Bed scale Reported by Patient Measurement Method Physical Exam General Appearance: Alert, Oriented X3, Cooperative Other Physical Findings: Skin No Rashes Skin Temp/Moisture Exam: Hot/Diaphoretic Sepsis Skin Exam (color): Normal for Ethnicity HEENT Atraumatic, PERRLA, dry mucous membranes Cardiovascular Regular Rate, Normal S1, Normal S2, harsh systolic murmur Lungs crackles L>R base Abdomen distended, nontender, no masses, no bowel sounds, retal tube intact with liquid semi greenish output. Extremities Normal Pulses, 1+ pitting edema Last 24 Hrs of Lab/Chaon Results Last 24 Hrs of Labs/Mics: Laboratory Tests 08/16/17 1215: 08/16/17 0540: Anion Gap 12, Estimated GFR 56 L, BUN/Creatinine Ratio 33.0 H, Troponin I 0.06 , CBC w Diff MAN DIFF ORDERED, RBC 4.17 L, MCV 71.4 L, MCH 23.4 L, MCHC 32.7 L, RDW 18.9 H, MPV 8.8, Gran % 71.4, Lymphocytes % 12.7 L, Monocytes % 15.3 H , Eosinophils % 0.3, Basophils % 0.3, Absolute Granulocytes 2.6, Segmented Neutrophils 20 L, Band Neutrophils 46 H, Absolute Lymphocytes 0.5 L, Lymphocytes 31, Monocytes 3, Absolute Monocytes 0.5, Absolute Eosinophils 0, Absolute Basophils 0, Platelet Estimate ADEQUATE, Hypochromic-Microcytic 1+, Anisocytosis 1+, Microcytic Cells 1+ 08/16/17 0015: Iron 13 L, TIBC 350, Ferritin 88.0, Troponin I 0.05 08/15/17 2105: Lactic Acid 0.8 Microbiology 08/16 1031 STOOL: Cryptosporidium Antigen - COMP 08/16 1031 STOOL: Giardia Antigen (CHANO) - COMP 08/16 0200 UPPER RESP: Surveillance Culture - RECD 08/16 0200 GI: Surveillance Culture - RECD 08/16 0009 STOOL: Clostridium difficile Toxin A & B - RES 08/16 0009 STOOL: Stool Culture - RES Assessment/Plan Assessment: 67-year-old lady with a past medical history of hyperlipidemia, hypertension, diabetes mellitus, drug-induced hepatitis presented for evaluation of 2-3 day history of lethargy and weakness. The sepsis symptoms included 3-4 episodes of nonbloody diarrhea, with no obvious abdominal pain, nausea, or vomiting. Patient does also report a 10 pound weight loss in the past 4-5 months. Impression Acute hypoxic respiratory failure. Now resolved. Sepsis, with GI as the possible source given the diarrhea, fevers, and low blood count. Leukopenia. Possibly infectious etiology Possible colitis Acute kidney injury Hypokalemia Anemia. Microcytic Plan Will advance diet today Aggressive replenishment of potassium Awaiting stool culture, ova and parasite results If stool cultures are negative we'll stop antibiotics however today we'll continue ceftriaxone and metronidazole (day 2) Iron supplementation for the very low levels of line in the setting of microcytic anemia Will await GI recommendations Problem List: 1. Colitis 2. Diarrhea 3. Fever Pain Ratin Pain Location: none Pain Goal: Remain pain free Pain Plan: Per pathway Tomorrow's Labs & Rationales: CBCs and BEP
--- NOTE | 2017-08-16 12:10 | PN- Att Addend ---
Attending Addendum Attending Brief Note Patient seen and examined. Plan of care discussed with the medical team and the patient. Available lab work and radiology test reports were reviewed. Patients can he awake alert and feels better. She denies any new fever chills or chest pain difficulty breathing. Denies any abdominal pain. She is hungry and wants to eat. A rectal tube is draining greenish liquid. Exam: General: Patient awake alert oriented without any distress CVS: S1 plus S2 without any murmur or gallops Chest: Few scattered crepitation without any wheeze. There is no respiratory distress. Abdomen: Soft non-tender, bowel sound present, no guarding or rebound; rectal tube noted [employer]: Awake alert oriented without any focal neuro deficit and follows commands appropriately Extremities: No edema; no clubbing or cyanosis noted Assessment and problem list * Acute diarrhea and colitis without any blood or fever or MRSA count elevation most likely viral etiology; unlikely to be C. difficile * Suspected sepsis with lactic acidosis * hypoxia history failure with admission saturation 89% on room air * Hyperglycemia * Hyponatremia * Microcytic anemia Plan * Await stool studies * Replace potassium * If stool cultures are negative we'll discontinue antibiotic * Okay to feed patient * Continue IV fluids and once oral intake is adequate can discontinue * If stool cultures are negative patient can be given symptomatic relief or diarrhea with Lomotil * Guaiac stool Current Medications Sig/Sarika Start time Last Medication Dose Route Stop Time Status Admin Acetaminophen 0 .STK-MED ONE 08/15 2356 DC IV Acetaminophen 1,000 MG Q6P PRN 08/15 2345 08/16 N/A 1 UNIT IV 0509 Acetaminophen 0 .STK-MED ONE 08/15 1809 DC IV Acetaminophen 1,000 MG ONCE ONE 08/15 1800 DC 08/15 N/A 1 UNIT IV 08/15 1814 1805 Ceftazidime 0 .STK-MED ONE 08/15 1902 DC .ROUTE Ceftazidime 1,000 MG ONCE ONE 08/15 1815 08/15 IV 08/15 1816 1903 Ceftriaxone Sodium 1,000 MG DAILY 08/16 0900 AC 08/16 IV 0837 Heparin Sodium 5,000 UNIT Q8 08/16 0600 AC 08/16 (Porcine) SC 0505 Insulin Aspart 0 TIDAC 08/16 1200 AC SC Insulin Human Regular 0 Q6 08/16 0003 DC 08/16 SC 1135 Insulin Human Regular 10 UNITS ONCE ONE 08/15 1845 DC 08/15 IV 08/15 1846 1857 Metronidazole 500 MG Q8H 08/16 0600 AC 08/16 N/A 1 UNIT IV 0533 Metronidazole 500 MG IQ8 08/16 0000 DC N/A 1 UNIT IV Metronidazole 500 MG ONCE ONE 08/15 2115 DC 08/15 N/A 1 UNIT IV 08/15 2214 2134 Potassium Chloride 10 MEQ Q1H 08/16 0645 DC 08/16 IV 08/16 0846 0955 Sodium Chloride 1,000 ML .[id number] 08/15 2345 AC 08/16 IV 08/16 1304 0019 Sodium Chloride 1,000 ML BOLUS ONE 08/15 1800 DC 08/15 IV 08/15 185 1805 Sodium Chloride 1,000 ML BOLUS ONE 08/15 1800 DC 08/15 IV 08/15 185 1851 Vancomycin HCl 0 .STK-MED ONE 08/15 1902 DC .ROUTE Vancomycin HCl 1,000 MG ONCE ONE 08/15 1815 DC 08/15 Sodium Chloride 250 ML IV 08/15 1914 1905 Laboratory Tests 08/16/17 0540: Anion Gap 12, Estimated GFR 56 L, BUN/Creatinine Ratio 33.0 H, Troponin I 0.06 , CBC w Diff MAN DIFF ORDERED, RBC 4.17 L, MCV 71.4 L, MCH 23.4 L, MCHC 32.7 L, RDW 18.9 H, MPV 8.8, Gran % 71.4, Lymphocytes % 12.7 L, Monocytes % 15.3 H , Eosinophils % 0.3, Basophils % 0.3, Absolute Granulocytes 2.6, Segmented Neutrophils 20 L, Band Neutrophils 46 H, Absolute Lymphocytes 0.5 L, Lymphocytes 31, Monocytes 3, Absolute Monocytes 0.5, Absolute Eosinophils 0, Absolute Basophils 0, Platelet Estimate ADEQUATE, Hypochromic-Microcytic 1+, Anisocytosis 1+, Microcytic Cells 1+ 08/16/17 0015: Iron 13 L, TIBC 350, Ferritin 88.0, Troponin I 0.05 08/15/172104: Lactic Acid 0.8 08/15/171824: Ammonia < 9 L 08/15/171819: pH 7.45, pCO2 25 L, pO2 93, HCO3 18 L, ABG O2 Sat (Measured) 97.0, Carboxyhemoglobin 0.5 L, O2 Concentration % 2L, O2 Delivery Method NC, Phlebotomy Draw Site RIGHT RADIAL 08/15/171810: Urine Opiates Screen < 100, Methadone Screen < 40, Barbiturate Screen < 60, Ur Phencyclidine Scrn < 6.00, Amphetamines Screen < 100, U Benzodiazepines Scrn < 85, Urine Cocaine Screen < 50, Urine Cannabis Screen < 5.00, Urinalysis MOD H, Urine Color YEL, Urine Clarity CLEAR, Urine pH 6.0, Ur Specific [place] 1.020, Urine Protein 100 H, Urine Ketones NEG, Urine Nitrite NEG, Urine Bilirubin NEG, Urine Urobilinogen 0.2, Ur Leukocyte Esterase NEG, Ur Microscopic SEDIMENT EXAMINED, Ur Epithelial Cells RARE, Urine Hemoglobin NEG, Urine Glucose >=1000 H 08/15/171801: Acetone Level Cancelled 08/15/17 180: Anion Gap 16, Estimated GFR 45 L, BUN/Creatinine Ratio 27.5 H, Glucose 377 H, Lactic Acid 2.4 H, Calcium 8.3 L, Total Bilirubin 0.6, AST 29, ALT 31, Alkaline Phosphatase 74, Troponin I 0.04, Total Protein 6.5, Albumin 3.5, Globulin 3.0, Albumin/Globulin Ratio 1.2, Amylase 174 H, Lipase 93, CBC w Diff NO MAN DIFF REQ, RBC 4.86, MCV 71.2 L, MCH 22.9 L, MCHC 32.1 L, RDW 18.8 H, MPV 8.1, Gran % 69.2, Lymphocytes % 15.1 L, Monocytes % 15.4 H, Eosinophils % 0.1, Basophils % 0.2, Absolute Granulocytes 3.0, Absolute Lymphocytes 0.7 L, Absolute Monocytes 0.7 H, Absolute Eosinophils 0, Absolute Basophils 0, Serum Alcohol < 10.0, Acetone Level NEGATIVE Microbiology 08/16 1031 STOOL: Cryptosporidium Antigen - RECD 08/16 1031 STOOL: Giardia Antigen (LUZ MARINA) - RECD 08/16 0200 UPPER RESP: Surveillance Culture - RECD 08/16 020 GI: Surveillance Culture - RECD 08/16 000 STOOL: Clostridium difficile Toxin A & B - RECD 08/16 000 STOOL: Stool Culture - RECD 08/15 182 BLOOD: Blood Culture - RES 08/15 1810 URINE ROUT: Urine Culture - RES 08/15 1801 BLOOD: Blood Culture - RES Vital Signs Date Time Temp Pulse Resp B/P B/P Pulse O2 O2 Flow FiO2 Mean Ox Delivery Rate 08/16 0800 95 Nasal 2.0L Cannula 08/16 0800 100.4 89 20 110/42 95 Nasal 2.0L Cannula 08/16 0539 101.3 08/16 0509 103.3 08/16 0215 92 Nasal 2.0L Cannula 08/16 0156 95 Nasal 2.0L Cannula 08/16 0153 102.2 102 26 120/44 95 Nasal 2.0L Cannula 08/16 0117 102.8 105 22 151/65 96 Nasal 2.0L Cannula 08/16 0055 103.6 08/16 0032 104.0 08/15 2338 104.9 114 21 174/74 95 Nasal 2.0L Cannula 08/15 2012 101.8 94 18 129/58 96 Nasal 2.0L Cannula 08/15 1906 102.6 08/15 1906 99 95 Nasal 2.0L Cannula 08/15 1831 Nasal 2.0L Cannula 08/15 1805 103.1 08/15 1753 103.1 111 15 164/69 89 Room Air Intake & Output 08/16 1600 08/16 0800 08/16 0000 Intake Total 418 Output Total 1200 700 Balance -782 -700 Intake, IV 418 Intake, Oral 0 Output, Stool 700 Output, Urine 500 700 Patient 193 lb 188 lb Weight Weight Bed scale Reported by Patient Measurement Method CT abdomen and pelvis 1. Thickening of the wall of the RIGHT colon cecum, ascending colon and portion of the transverse colon combined with mild pericolic fat stranding suggesting COLITIS. NONSPECIFIC, THIS COULD BE INFLAMMATORY, INFECTIOUS OR ISCHEMIC. 2. Diffusely dilated small bowel loops without a transition zone suggesting an ILEUS. 3. Other findings include tiny nonobstructing LEFT kidney stone, splenomegaly, heavy vascular calcification of the aorta, mildly enlarged prominent mesenteric lymph nodes. This might be reactive. Age-appropriate degenerative changes of the spine an Grey catheter..
--- NOTE | 2017-08-16 15:42 | Cons- Cardiology ---
General Information and HPI Consulting Request Date of Consult: 08/16/17 Requested By: Vic UMAAN,Anna History of Present Illness: Ms. Camarillo is a 67 year old female with history of hypertension, dyslipidemia, diabetes and leg edema. On Thursday, the patient noted profound weakness and lethargy and was barely able to walk. She denies having any chest pain, pressure , tightness or palpitations. She does report a heartburn sensation which she has had intermittently and she reports shortness of breath. The patient sleeps chronically with her back upright but she states that this is to decrease heartburn rather than to improve her breathing. The notes that she had 3 -4 episodes of nonbloody diarrhea and incontinence was reported. He also notes that she has had a 10 pound weight loss in the past 4-5 months and has missed her medications in the past day. The patient's initial ECG showed anterolateral ST depressions consistent with ischemia. She also has pulmonary vascular congestion. Allergies/Medications Allergies: Coded Allergies: adhesive (ITCHING 01/21/16) ampicillin (RASH 01/21/16) dulaglutide (From TRULICITY) (PANCREATITIS 08/15/17) lanolin (RASH 08/15/17) wool (RASH 08/15/17) Home Med List: Amlodipine Besylate (Norvasc) 5 MG TABLET 1 TAB PO DAILY BP (Reported) This medication is not on the patient list but was filled recently August 01 confirm if she is taking Beta-Carotene(A) W-C & E/Min (Vision Vitamins) 1 EACH TABLET 1 TAB PO BID SUPPLEMENT (Reported) Calcium Carbonate/Vitamin D3 (Calcium 500 + D Tablet) (Unknown Strength) TABLET (Unknown Dose) PO BID SUPPLEMENT (Reported) Clotrimazole/Betamethasone Dip (Clotrimazole-Betamethasone Crm) 1 %-0.05 % CREAM..G. 1 BERTIN TOP BID VAGINAL AREA (Reported) apply to affected area(s) Empagliflozin (Jardiance) 25 MG TABLET 1 TAB PO DAILY DM (Reported) Empagliflozin (Jardiance) 10 MG TABLET 25 TAB PO DAILY dm Fenofibrate Nanocrystallized (Fenofibrate) 145 MG TABLET 1 TAB PO DAILY CHOLESTEROL (Reported) Furosemide 40 MG TABLET 1 TAB PO DAILY WATER PILL (Reported) Guaifenesin (Mucinex) 600 MG TAB.ER.12H 1 TAB PO BID MUCUS (Reported) Insulin Glargine,Hum.rec.anlog (Mahamed Garciaostar) 300 UNIT/ML (1.5 ML) INSULN.PEN 26 UNITS SC QPM DM (Reported) Lansoprazole (Prevacid) (Unknown Strength) CAPSULE.DR (Unknown Dose) PO DAILY GI (Reported) Lisinopril 40 MG TABLET 1 TAB PO DAILY BP (Reported) Loratadine (Claritin) 10 MG TABLET 1 TAB PO DAILY ALLERGIES (Reported) Metformin HCl (Glucophage) 1,000 MG TABLET 1 TAB PO BID DM (Reported) Multiple Vitamin (Multivitamins) 1 EACH TABLET 1 TAB PO DAILY SUPPLEMENT ( Reported) Potassium Chloride 20 MEQ TAB.ER.PRT 1 TAB PO DAILY SUPPLEMENT (Reported) Rosuvastatin Calcium (Crestor) 40 MG TABLET 1 TAB PO DAILY CHOLESTEROL ( Reported) Review of Systems Review of Systems: leg edema treated with Lasix Past History Travel History Traveled to [place] past 21 day No Medical History Blood Transfusion Hx: No Neurological: NONE EENT: NONE Cardiovascular: hypertension, hyperlipidemia Respiratory: NONE Gastrointestinal: NONE Hepatic: NONE Renal: NONE Musculoskeletal: NONE Psychiatric: NONE Endocrine: diabetes Blood Disorders: NONE Cancer(s): NONE FIELD COUNSEL/Reproductive: NONE Surgical History Surgical History: breast biopsy Psychosocial History Where Do You Live? Home Services at Home: None Smoking Status: Never Smoked ETOH Use: occasional use Exam & Diagnostic Data Vital Signs and I&O Vital Signs Date Time Temp Pulse Resp B/P B/P Pulse O2 O2 Flow FiO2 Mean Ox Delivery Rate 08/16 1422 100.8 08/16 1318 100.9 08/16 0800 95 Nasal 2.0L Cannula 08/16 0800 100.4 89 20 110/42 95 Nasal 2.0L Cannula 08/16 0539 101.3 08/16 0509 103.3 08/16 0215 92 Nasal 2.0L Cannula 08/16 0156 95 Nasal 2.0L Cannula 08/16 0153 102.2 102 26 120/44 95 Nasal 2.0L Cannula 08/16 0117 102.8 105 22 151/65 96 Nasal 2.0L Cannula 08/16 0055 103.6 08/16 0032 104.0 08/15 2338 104.9 114 21 174/74 95 Nasal 2.0L Cannula 08/15 2012 101.8 94 18 129/58 96 Nasal 2.0L Cannula 08/15 1906 102.6 08/15 1906 99 95 Nasal 2.0L Cannula 08/15 1831 Nasal 2.0L Cannula 08/15 1805 103.1 08/15 1753 103.1 111 15 164/69 89 Room Air Intake & Output 08/16 1600 08/16 0800 08/16 0000 08/15 1600 08/15 0800 08/15 0000 Intake Total 1200 418 Output Total 300 1200 700 Balance 900 -782 -700 Intake, IV 800 418 Intake, Oral 400 0 Number 1200 Bowel Movements Output, Stool 700 Output, Urine 300 500 700 Patient 193 lb 188 lb Weight Weight Bed scale Reported by Patient Measurement Method Physical Exam: General: WD/WN female in NAD; alert and oriented x 3 HEENT: NC/AT, PERRL, EOMI Neck: no JVD, no carotid bruit Heart: RRR with 2/6 systolic murmur at the LLSB and RUSB Lungs: clear bilaterally Abdomen: soft, NT, +ve bowel sounds Extremities: no edema Assessment/Plan Assessment/Plan * This patient has fever, an initial incresed serum lactate level and CT evidence of an infectious colitis in addition to diarrhea. I suspect that she was indeed dehydrated with impending sepsis. In the setting of increased myocardial demand she was noted to have ischemic ST depressions on her ECG but has not ruled in for an HI. The patient has multiple risk factors for CAD and almost certainly has some degreee of coronary atherosclerosis. Her shortness of breath and dependence on lasix is also suspicous for CHF. I would not diurese this patient at this point in time since her diarrhea likely resulted in some dehydration. Continue antibiotic therapy. * Obtain an echocardiogram. * This patient will need to be risk stratified for significant ischemia when more stable. Consult Acknowledgment - Thank you for your consult request.
[2017-08-16 16:00] VITALS: BP 100/42
[2017-08-17 00:20] VITALS: BP 114/52
[2017-08-17 05:27] LABS: ABSOLUTE BASOPHIL COUNT 0 /CUMM (0.0-0.2); ABSOLUTE EOSINOPHIL COUNT 0.3 /CUMM (0.0-0.7); ABSOLUTE GRANULOCYTE CT 3.4 /CUMM (1.4-6.5); ABSOLUTE MONOCYTE COUNT 0.6 /CUMM (0.10-0.60); BASOPHIL % 0.3 % (0.0-2.0); GRANULOCYTE % 62.7 % (42.2-75.2); HEMATOCRIT 29.5 % (37-47); MEAN CORPUSCULAR HGB 23.3 PG (27.0-31.0); MEAN CORPUSCULAR HGB CONC 32.3 G/DL (33.0-37.0); MEAN CORPUSCULAR VOLUME 72.1 FL (81.0-99.0); PLATELET COUNT 180 /CUMM (130-400); RBC DISTRIBUTION WIDTH 18.6 % (11.5-14.5); RED BLOOD CELL CT 4.09 /CUMM (4.20-5.40); WHITE BLOOD CELL COUNT 5.4 /CUMM (4.8-10.8)
[2017-08-17 08:00] VITALS: BP 104/52
--- NOTE | 2017-08-17 08:34 | PN- Housestaff ---
Subjective Follow-up For: CHF Colitis Sepsis ANIBAL ST depressions Subjective: States that she had some nausea with taking the iron pill did not vomit. Patient states that her diarrhea is improving. States that she had some pain while eating in the left abdomen. No chest pain. No shortness breath. Review of Systems Constitutional: Reports: see HPI. Objective Last 24 Hrs of Vital Signs/I&O Vital Signs Date Time Temp Pulse Resp B/P B/P Pulse O2 O2 Flow FiO2 Mean Ox Delivery Rate 08/17 08 99.1 93 29 104/52 96 Room Air 08/17 0020 98.6 88 20 114/52 96 Room Air Room Air 08/16 2052 100.0 08/16 1953 100.0 08/16 1600 100.0 84 20 100/42 96 Room Air 08/16 1422 100.8 08/16 1318 100.9 Intake & Output 08/17 1600 08/17 0800 08/17 0000 Intake Total 330 430 Output Total 400 950 Balance -70 -520 Intake, IV 130 230 Intake, Oral 200 200 Number 4 2 Bowel Movements Output, Stool 650 Output, Urine 400 300 Patient 188 lb Weight Weight Bed scale Measurement Method Physical Exam General Appearance: Alert, Oriented X3, Cooperative, No Acute Distress Cardiovascular: Regular Rate, systolic murmur Lungs: Clear to Auscultation Abdomen: Normal Bowel Sounds, Soft, No Tenderness Extremities: 2+ radial pulses. 1+ LLE edema Current Medications: Current Medications Sig/Sarika Start time Last Medication Dose Route Stop Time Status Admin Acetaminophen 1,000 MG Q6P PRN 08/15 2345 AC 08/16 N/A 1 UNIT IV 1952 Ceftriaxone Sodium 1,000 MG DAILY 08/16 0900 AC 08/17 IV 0807 Ferrous Sulfate 325 MG TID 08/16 2100 AC 08/17 PO 0807 Heparin Sodium 5,000 UNIT Q8 08/16 0600 AC 08/16 (Porcine) SC 2143 Insulin Aspart 0 TIDAC 08/16 1200 AC 08/17 SC 0804 Insulin Human Regular 0 Q6 08/16 0003 DC 08/16 SC 1135 Metronidazole 500 MG Q8H 08/16 0600 AC 08/17 N/A 1 UNIT IV 0643 Ondansetron HCl 4 MG Q6P PRN 08/16 2300 AC 08/16 IV 2317 Potassium Chloride 40 MEQ ONCE ONE 08/17 0915 DC 08/17 PO 08/17 0916 1001 Potassium Chloride 20 MEQ ONCE ONE 08/16 1645 DC 08/16 PO 08/16 1646 1705 Sodium Chloride 1,000 ML .[id number] 08/15 2345 DC 08/16 IV 08/16 1304 0019 Last 24 Hrs of Lab/[place] Results Last 24 Hrs of Labs/Mics: Laboratory Tests 08/17/17 0445: Anion Gap 14, Estimated GFR > 60, Glucose 278 H, Calcium 7.7 L, Phosphorus 2.8 , Magnesium 2.1, Total Bilirubin 0.3, AST 58 H, ALT 62 H, Albumin 2.6 L, CBC w Diff NO MAN DIFF REQ, RBC 4.09 L, MCV 72.1 L, MCH 23.3 L, MCHC 32.3 L, RDW 18.6 H, MPV 9.0, Gran % 62.7, Lymphocytes % 19.1 L, Monocytes % 11.9 H, Eosinophils % 6.0 H, Basophils % 0.3, Absolute Granulocytes 3.4, Absolute Lymphocytes 1.0 L, Absolute Monocytes 0.6, Absolute Eosinophils 0.3, Absolute Basophils 0 08/16/17 1215: Assessment/Plan Assessment: A: 67-year-old lady with a past medical history of hyperlipidemia, hypertension, diabetes mellitus, drug-induced hepatitis presented for evaluation of 2-3 day history of lethargy and weakness. The sepsis symptoms included 3-4 episodes of nonbloody diarrhea, with no obvious abdominal pain, nausea, or vomiting. Patient does also report a 10 pound weight loss in the past 4-5 months. P: #Severe sepsis 2/2 persistent diarrhea ?possible colitis vs gastroenteritis Sepsis, with GI as the possible source given the diarrhea, fevers, and low WBC/ leukopenia. Received 3+ L NS. LA resolved. Given ceftaz, metronidazole, vanc x1 in ED C.diff negative -cont ceftriaxone and medtronidazole. stop abx if shiga toxin negative -f/u stool cultures -cont zofran prn #Acute hypoxic respiratory failure related to sepsis. ?CHF CXR: Mild cardiomegaly and pulmonary venous congestion. No overt pulmonary edema. Ischemic ST depressions on her ECG but has not ruled in for an NC. Did no diurese per cardiology given diarrhea and dehydration -f/u echo -cont cardiology recommendations #t2d -cont novolog sliding scale -currently holding metformin given anibal empagliflozin -consider restarting home t2d medications #Chronic microcytic anemia Iron studies reveal: low iron, normal ferritin abd TIBC Current H/H 9.5/29.5 -h/h stable and at baseline, cont to monitor -cont iron pills with meals TID #Transaminitis Increase in LFTS -possible lab variation error, cont to monitor -consider RUQ if elevated lfts persists #Acute kidney injury - resolved Initial creatinine 1.2, baseline 0.7 Current 0.8 -cont to monitor #Hypokalemia -cont to monitor and replnish as needed #Healthy diet #FULL CODE Problem List: 1. Colitis Pain Ratin Pain Location: none Pain Goal: Pain 4 or less Pain Plan: pain pathway Tomorrow's Labs & Rationales: cbc icu lft
--- NOTE | 2017-08-17 11:03 | PN- Att Addend ---
Attending Addendum Attending Brief Note Patient seen and examined. Plan of care discussed with the medical team and the patient. Available lab work and radiology test reports were reviewed. Patients isawake alert and feels better. Her rectal tube was discontinued. She currently has a Grey catheter. She denies any new fever chills or chest pain difficulty breathing. She continues to have diarrhea but intensity has reduced since yesterday. Denies any abdominal pain. Exam: General: Patient awake alert oriented without any distress CVS: S1 plus S2 without any murmur or gallops Chest: Few scattered crepitation without any wheeze. There is no respiratory distress. 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 difficile; C. difficile was negative and culture report is mixed aric * Suspected sepsis with lactic acidosis * hypoxia history failure with admission saturation 89% on room air * Hyperglycemia * Hyponatremia * Microcytic anemia * CHF by x-ray Plan * Await Shiga toxin results; doubt Dysentry * Replace potassium * If Shiga toxin is negative we'll discontinue antibiotics * Continue IV fluids and once oral intake is adequate can discontinue * Start Imodium 2 pills 1 and then 1 pill after each diarrhea stool up to 8 maximum per day * Patient can be moved to telemetry * Echocardiogram * If patient's febrile we'll repeat blood cultures Current Medications Sig/Sarika Start time Last Medication Dose Route Stop Time Status Admin Acetaminophen 1,000 MG Q6P PRN 08/15 2345 AC 08/16 N/A 1 UNIT IV 1953 Ceftriaxone Sodium 1,000 MG DAILY 08/16 0900 AC 08/17 IV 0807 Ferrous Sulfate 325 MG TID 08/16 2100 AC 08/17 PO 0807 Heparin Sodium 5,000 UNIT Q8 08/16 0600 AC 08/16 (Porcine) SC 2143 Insulin Aspart 0 TIDAC 08/16 1200 AC 08/17 SC 0804 Insulin Human Regular 0 Q6 08/16 0003 DC 08/16 SC 1135 Metronidazole 500 MG Q8H 08/16 0600 AC 08/17 N/A 1 UNIT IV 0643 Ondansetron HCl 4 MG Q6P PRN 08/16 2300 AC 08/16 IV 2317 Potassium Chloride 40 MEQ ONCE ONE 08/17 0915 DC 08/17 PO 08/17 0916 1001 Potassium Chloride 20 MEQ ONCE ONE 08/16 1645 DC 08/16 PO 08/16 1646 1705 Sodium Chloride 1,000 ML .[id number] 08/15 2345 DC 08/16 IV 08/16 1304 0019 Laboratory Tests 08/17/17 0445: Anion Gap 14, Estimated GFR > 60, Glucose 278 H, Calcium 7.7 L, Phosphorus 2.8 , Magnesium 2.1, Total Bilirubin 0.3, AST 58 H, ALT 62 H, Albumin 2.6 L, CBC w Diff NO MAN DIFF REQ, RBC 4.09 L, MCV 72.1 L, MCH 23.3 L, MCHC 32.3 L, RDW 18.6 H, MPV 9.0, Gran % 62.7, Lymphocytes % 19.1 L, Monocytes % 11.9 H, Eosinophils % 6.0 H, Basophils % 0.3, Absolute Granulocytes 3.4, Absolute Lymphocytes 1.0 L, Absolute Monocytes 0.6, Absolute Eosinophils 0.3, Absolute Basophils 0 08/16/17 1215: 08/16/17 0540: Anion Gap 12, Estimated GFR 56 L, BUN/Creatinine Ratio 33.0 H, Troponin I 0.06 , CBC w Diff MAN DIFF ORDERED, RBC 4.17 L, MCV 71.4 L, MCH 23.4 L, MCHC 32.7 L, RDW 18.9 H, MPV 8.8, Gran % 71.4, Lymphocytes % 12.7 L, Monocytes % 15.3 H , Eosinophils % 0.3, Basophils % 0.3, Absolute Granulocytes 2.6, Segmented Neutrophils 20 L, Band Neutrophils 46 H, Absolute Lymphocytes 0.5 L, Lymphocytes 31, Monocytes 3, Absolute Monocytes 0.5, Absolute Eosinophils 0, Absolute Basophils 0, Platelet Estimate ADEQUATE, Hypochromic-Microcytic 1+, Anisocytosis 1+, Microcytic Cells 1+ 08/16/17 0015: Iron 13 L, TIBC 350, Ferritin 88.0, Troponin I 0.05 08/15/17 2105: Lactic Acid 0.8 08/15/171824: Ammonia < 9 L 08/15/171819: pH 7.45, pCO2 25 L, pO2 93, HCO3 18 L, ABG O2 Sat (Measured) 97.0, Carboxyhemoglobin 0.5 L, O2 Concentration % 2L, O2 Delivery Method NC, Phlebotomy Draw Site RIGHT RADIAL 08/15/171810: Urine Opiates Screen < 100, Methadone Screen < 40, Barbiturate Screen < 60, Ur Phencyclidine Scrn < 6.00, Amphetamines Screen < 100, U Benzodiazepines Scrn < 85, Urine Cocaine Screen < 50, Urine Cannabis Screen < 5.00, Urinalysis MOD H, Urine Color YEL, Urine Clarity CLEAR, Urine pH 6.0, Ur Specific [place] 1.020, Urine Protein 100 H, Urine Ketones NEG, Urine Nitrite NEG, Urine Bilirubin NEG, Urine Urobilinogen 0.2, Ur Leukocyte Esterase NEG, Ur Microscopic SEDIMENT EXAMINED, Ur Epithelial Cells RARE, Urine Hemoglobin NEG, Urine Glucose >=1000 H 08/15/171801: Acetone Level Cancelled 08/15/171801: Anion Gap 16, Estimated GFR 45 L, BUN/Creatinine Ratio 27.5 H, Glucose 377 H, Lactic Acid 2.4 H, Calcium 8.3 L, Total Bilirubin 0.6, AST 29, ALT 31, Alkaline Phosphatase 74, Troponin I 0.04, Total Protein 6.5, Albumin 3.5, Globulin 3.0, Albumin/Globulin Ratio 1.2, Amylase 174 H, Lipase 93, CBC w Diff NO MAN DIFF REQ, RBC 4.86, MCV 71.2 L, MCH 22.9 L, MCHC 32.1 L, RDW 18.8 H, MPV 8.1, Gran % 69.2, Lymphocytes % 15.1 L, Monocytes % 15.4 H, Eosinophils % 0.1, Basophils % 0.2, Absolute Granulocytes 3.0, Absolute Lymphocytes 0.7 L, Absolute Monocytes 0.7 H, Absolute Eosinophils 0, Absolute Basophils 0, Serum Alcohol < 10.0, Acetone Level NEGATIVE Microbiology 08/16 1031 STOOL: Cryptosporidium Antigen - COMP 08/16 1031 STOOL: Giardia Antigen (LUZ MARINA) - COMP 08/16 0200 UPPER RESP: Surveillance Culture - COMP 08/16 0200 GI: Surveillance Culture - COMP 08/16 0009 STOOL: Clostridium difficile Toxin A & B - RES 08/16 000 STOOL: Stool Culture - RES 08/15 182 BLOOD: Blood Culture - RES 08/15 1810 URINE ROUT: Urine Culture - COMP 08/15 1801 BLOOD: Blood Culture - RES Vital Signs Date Time Temp Pulse Resp B/P B/P Pulse O2 O2 Flow FiO2 Mean Ox Delivery Rate 08/17 08 99.1 93 29 104/52 96 Room Air 08/17 0020 98.6 88 20 114/52 96 Room Air Room Air 08/16 2052 100.0 08/16 1953 100.0 08/16 1600 100.0 84 20 100/42 96 Room Air 08/16 1422 100.8 08/16 1318 100.9 Intake & Output 08/17 1600 08/17 0800 08/17 0000 Intake Total 330 430 Output Total 400 950 Balance -70 -520 Intake, IV 130 230 Intake, Oral 200 200 Number 4 2 Bowel Movements Output, Stool 650 Output, Urine 400 300 Patient 188 lb Weight Weight Bed scale Measurement Method
--- NOTE | 2017-08-17 14:49 | PN- Cardiology ---
Subjective Subjective: * No chest discomfort or shortness of breath. No lightheadedness or palpitations. * sinus rhythm Objective Vital Signs and I&Os Vital Signs Date Time Temp Pulse Resp B/P B/P Pulse O2 O2 Flow FiO2 Mean Ox Delivery Rate 08/18 799 99.1 93 29 104/52 96 Room Air 08/17 0020 98.6 88 20 114/52 96 Room Air Room Air 08/17 2051 100.0 08/163 100.0 08/17 1599 100.0 84 20 100/42 96 Room Air Intake & Output 08/17 1600 08/17 0800 08/17 0000 08/16 1600 08/16 0000 Intake Total 700 249 313 3442 418 Output Total 150 400 098 473 7319 700 Balance 550 -70 -520 900 -782 -700 Intake, IV 100 130 230 800 418 Intake, Oral 600 200 200 400 0 Number 2 4 2 1200 Bowel Movements Output, Stool 650 700 Output, Urine 150 400 300 300 500 700 Patient 188 lb 193 lb 188 lb Weight Weight Bed scale Bed scale Reported by Patient Measurement Method Physical Exam: General: WD/WN female in NAD; alert and oriented x 3 HEENT: NC/AT, PERRL, EOMI Neck: no JVD, no carotid bruit Heart: RRR with 2/6 systolic murmur at the LLSB and RUSB Lungs: clear bilaterally Abdomen: soft, NT, +ve bowel sounds Extremities: no edema Assessment/Plan Assessment/Plan * This patient has fever which is coming down. There is CT evidence of an infectious colitis in addition to diarrhea. I suspect that she was dehydrated upon admission. In the setting of increased myocardial demand she was noted to have ischemic ST depressions on her ECG but did not rule in for an [place]. The patient has multiple risk factors for CAD and almost certainly has some degreee of coronary atherosclerosis. Her shortness of breath and dependence on lasix is also suspicous for CHF. I would not diurese this patient at this point in time since her diarrhea likely resulted in some dehydration. Continue antibiotic therapy. * Obtain an echocardiogram. * This patient will need to be risk stratified for significant ischemia when more stable. Continue telemetry? Yes
[2017-08-17 16:00] VITALS: BP 118/50
[2017-08-17 23:00] VITALS: BP 120/60
[2017-08-18 05:16] LABS: ABSOLUTE BASOPHIL COUNT 0 /CUMM (0.0-0.2); ABSOLUTE EOSINOPHIL COUNT 0.4 /CUMM (0.0-0.7); ABSOLUTE GRANULOCYTE CT 3.2 /CUMM (1.4-6.5); ABSOLUTE LYMPH COUNT 1.5 /CUMM (1.2-3.4); ABSOLUTE MONOCYTE COUNT 0.5 /CUMM (0.10-0.60); BASOPHIL % 0.4 % (0.0-2.0); EOSINOPHIL % 7.5 % (0-5); HEMATOCRIT 29.4 % (37-47); MEAN CORPUSCULAR HGB 23.3 PG (27.0-31.0); MEAN CORPUSCULAR HGB CONC 32.5 G/DL (33.0-37.0); MEAN CORPUSCULAR VOLUME 71.6 FL (81.0-99.0); MEAN PLATELET VOLUME 9.5 FL (7.4-10.4); PLATELET COUNT 192 /CUMM (130-400); RBC DISTRIBUTION WIDTH 18.4 % (11.5-14.5); RED BLOOD CELL CT 4.11 /CUMM (4.20-5.40); WHITE BLOOD CELL COUNT 5.7 /CUMM (4.8-10.8)
[2017-08-18 08:00] VITALS: BP 120/68
--- NOTE | 2017-08-18 08:48 | PN- Housestaff ---
Leonidas UMANA,[facility] 08/18/17 0847: Subjective Follow-up For: Severe sepsis 2/2 persistent diarrhea ?possible colitis vs gastroenteritis Acute hypoxic respiratory failure related to sepsis ?CHF Subjective: Patient continues to have multiple loose BM. No abd pain. Review of Systems Constitutional: Reports: see HPI. Gastrointestinal: Reports: diarrhea. Objective Last 24 Hrs of Vital Signs/I&O Vital Signs Date Time Temp Pulse Resp B/P B/P Pulse O2 O2 Flow FiO2 Mean Ox Delivery Rate 08/18 08 97.3 80 20 120/68 98 Room Air 08/17 2300 97.2 80 20 120/60 98 Room Air 08/17 1600 97.3 80 20 118/50 97 Room Air Intake & Output 08/18 1600 08/18 0800 08/18 0000 Intake Total 500 240 360 Output Total Balance 500 240 360 Intake, IV 20 120 120 Intake, Oral 480 120 240 Number 1 1 Bowel Movements Output, Urine Patient 193 lb Weight Weight Bed scale Measurement Method Physical Exam General Appearance: Alert, Oriented X3, Cooperative Cardiovascular: diastolic murmur Lungs: Clear to Auscultation, Normal Air Movement Abdomen: Normal Bowel Sounds, Soft, No Tenderness Extremities: 1+ LE edema, 2+ radial pulses Current Medications: Current Medications Sig/Sarika Start time Last Medication Dose Route Stop Time Status Admin Acetaminophen 650 MG Q6P PRN 08/17 2145 AC 08/17 PO 2132 Acetaminophen 1,000 MG Q6P PRN 08/15 2345 AC 08/16 N/A 1 UNIT IV 1953 Azithromycin 500 MG DAILY 08/18 1400 AC PO Calcium/Vitamin D 500 MG DAILY 08/18 0942 AC 08/18 PO 1139 Ceftriaxone Sodium 1,000 MG DAILY 08/16 0900 DC 08/18 IV 0902 Ergocalciferol 50,000 IU Q168 08/18 1400 AC PO Ferrous Sulfate 325 MG TID 08/16 2100 AC 08/18 PO 0901 Heparin Sodium 5,000 UNIT Q8 08/16 0600 AC 08/16 (Porcine) SC 2143 Insulin Aspart 0 TIDAC 08/16 1200 AC 08/18 SC 1135 Loperamide HCl 2 MG Q3P PRN 08/17 1315 DC PO Magnesium Oxide 400 MG ONE ONE 08/18 0900 DC 08/18 PO 08/18 0901 0902 Metronidazole 500 MG Q8H 08/16 0600 DC 08/18 N/A 1 UNIT IV 0510 Omeprazole 40 MG DAILY AC 08/17 1430 AC 08/18 PO 0515 Ondansetron HCl 4 MG Q6P PRN 08/16 2300 AC 08/16 IV 2317 Potassium Chloride 40 MEQ BID 08/18 0900 AC 08/18 PO 08/18 2101 0902 Potassium Chloride 20 MEQ ONCE ONE 08/18 0630 DC 08/18 PO 08/18 0631 0635 Last 24 Hrs of Lab/[place] Results Last 24 Hrs of Labs/Mics: Laboratory Tests 08/18/17 0355: Anion Gap 14, Estimated GFR > 60, Glucose 288 H, Calcium 7.6 L, Phosphorus 2.5 , Magnesium 1.9, Total Bilirubin 0.2, Direct Bilirubin 0.2, AST 27, ALT 46, Alkaline Phosphatase 74, Total Protein 5.3 L, Albumin 2.6 L, 25-OH Vitamin D Total 12.0 L, CBC w Diff NO MAN DIFF REQ, RBC 4.11 L, MCV 71.6 L, MCH 23.3 L , MCHC 32.5 L, RDW 18.4 H, MPV 9.5, Gran % 56.0, Lymphocytes % 27.1, Monocytes % 9.0, Eosinophils % 7.5 H, Basophils % 0.4, Absolute Granulocytes 3.2, Absolute Lymphocytes 1.5, Absolute Monocytes 0.5, Absolute Eosinophils 0.4, Absolute Basophils 0 Assessment/Plan Assessment: A: 67-year-old lady with a past medical history of CHF, hyperlipidemia, hypertension, diabetes mellitus, drug-induced hepatitis, CHF presenting for 2-3 day history of lethargy and weakness most likely 2/2 to sepsis of GI origin with positive Campylobacter culture. P: #Severe sepsis 2/2 persistent diarrhea ?possible colitis vs gastroenteritis GI as the possible source given the diarrhea, fevers, and low WBC/leukopenia. Received 3+ L NS. LA resolved. Given ceftaz, metronidazole, vanc x1 in ED Stool cultures growing campylobacter -switched from ceftriaxone and medtronidazole to azithromycin 500mg po daily -f/u stool cultures -cont zofran prn #Acute hypoxic respiratory failure related to sepsis with hx of CHF CXR: Mild cardiomegaly and pulmonary venous congestion. No overt pulmonary edema. Ischemic ST depressions on her ECG but has not ruled in for an [place]. Did no diurese per cardiology given diarrhea and dehydration Echo: EF60% with moderate aortic stenosis with mild aortic regurgitation. 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 -cont novolog sliding scale -currently holding metformin and empagliflozin -consider restarting home t2d medications #Chronic microcytic anemia Iron studies reveal: low iron, normal ferritin and TIBC Current H/H 9.6/29.4 -h/h stable and at baseline, cont to monitor -cont iron pills with meals TID #Transaminitis Increase in LFTS now normalized -most likely due to lab variation -consider RUQ if elevated lfts persists #Acute kidney injury - resolved with fluids Initial creatinine 1.2, baseline 0.7 Current 0.9 -cont to monitor #hypocalcemia Low calcium (corrected) and vit D Patient takes supplementation home. #Hypokalemia -cont to monitor and replnish as needed #Healthy diet #FULL CODE #DVT prophylaxis - SC heparin Problem List: 1. Colitis 2. Sepsis 3. Diarrhea 4. Uncontrolled diabetes mellitus 5. CHF (congestive heart failure) Pain Ratin Pain Location: none Pain Goal: Pain 4 or less Pain Plan: pathway Tomorrow's Labs & Rationales: cbc icu Sary Felipe 08/18/17 1647: Attending MD Review Statement Attending Statement Attending MD Statement: examined this patient, discuss w/resident/PA/NUCLEAR RADIATION ENGINEER, agreed w/resident/PA/NUCLEAR RADIATION ENGINEER, reviewed EMR data (avail), discussed with nursing, discussed with case mgmt Attending Assessment/Plan: Stool culture grew Campylobacter- abx changed to zithromax , will give it for 3 days. will see if her diarrhea resolved. will dc her home. Vit D def- start on 50k Units weekly supplementation.
--- NOTE | 2017-08-18 14:40 | ECHOCARDIOGRAM REPORT ---
MEDARDO KRAUSE Age: 67 : 1950 Gender: F Exam Date: 08/17/2017 17:01 Exam Location: [facility] Ht (in): 64 Wt (lb): 188 BSA: 1.99 BP: 104 / 52 Ordering Physician: Shamar Parsons MD Referring Physician: Ramu Morales MD Technologist: Cam Spencer [facility] Room Number: [id number] Indications: HEART FAILURE Rhythm: Sinus Technical Quality: good FINDINGS Left Ventricle Normal left ventricular size with mild left ventricular hypertrophy. Normal systolic function with no obvious regional wall motion abnormalities. Normal left ventricular diastolic filling pattern for age. The ejection fraction is visually estimated at 60%. Right Ventricle The right ventricle is normal in size and function. Right Atrium The right atrium is normal in size. Left Atrium The left atrium is mildly enlarged. The interatrial septum is intact. Mitral Valve The mitral valve demonstrates moderate posterior annular calcification of the posterior valve. There is mild mitral regurgitation. Aortic Valve Moderately thickened and sclerotic aortic valve with moderate stenosis. There is mild aortic regurgitation. Tricuspid Valve The tricuspid valve is normal in structure and function. There is mild tricuspid regurgitation. Pulmonary artery systolic pressure is normal. Pulmonic Valve Structurally normal pulmonic valve. There is trace pulmonic regurgitation. Pericardium Normal pericardium without effusion. No pleural effusion. Great Vessels Normal aortic root dimension. The aortic arch and great vessels are well seen and are normal. CONCLUSIONS 1. Normal EF of 60%. 2. Mild left ventricular hypertrophy. 3. Mild left atrial enlargment. 4. Mild mitral regurgitation. 5. Mild tricuspid regurgitation. 6. Moderate aortic stenosis with mild aortic regurgitation. 7. Trace pulmonic regurgitation. Tam Garcia M.D. (Electronically Signed) Final Date: 18 Aug 2017 14:39 MEASUREMENTS (Male / Female) Normal Values 2D ECHO LV Diastolic Diameter PLAX 4.4 cm 4.2 - 5.9 / 3.9 - 5.3 cm LV Systolic Diameter PLAX 3.0 cm 2.1 - 4.0 cm LV Fractional Shortening PLAX 31.8 % 25 - 46 % LV Ejection Fraction 2D Teich 60.1 % IVS Diastolic Thickness 1.5 cm LVPW Diastolic Thickness 1.4 cm LV Relative Wall Thickness 0.7 RV Internal Dim ED PLAX 3.2 cm 1.9 - 3.8 cm LVOT Diameter 2.1 cm Aortic Root Diameter 3.1 cm LA Systolic Diameter LX 4.4 cm 3.0 - 4.0 / 2.7 - 3.8 cm LA Volume 82.0 cm 18 - 58 / 22 - 52 cm Ascending Aorta Diameter 3.4 cm DOPPLER AV Peak Velocity 321.0 cm/s AV Peak Gradient 41.2 mmHg AV Mean Velocity 245.0 cm/s AV Mean Gradient 26.0 mmHg AV Velocity Time Integral 63.5 cm AI Deceleration [place] 345.0 cm/s AI Peak Velocity 363.0 cm/s AI Pressure Half Time 307.0 ms AI Peak Gradient 52.7 mmHg LVOT Peak Velocity 131.0 cm/s LVOT Peak Gradient 6.9 mmHg LVOT Mean Velocity 85.3 cm/s LVOT Mean Gradient 4.0 mmHg LVOT Velocity Time Integral 23.7 cm LVOT Stroke Volume 82.1 cm AV Area Cont Eq vti 1.3 cm AV Area Cont Eq pk 1.4 cm MV Peak Velocity 142.0 cm/s MV Peak Gradient 8.1 mmHg MV Mean Velocity 98.1 cm/s MV Mean Gradient 4.0 mmHg Mitral E Point Velocity 105.0 cm/s Mitral A Point Velocity 115.0 cm/s Mitral E to A Ratio 0.9 MV PHT Velocity 142.0 cm/s MV Deceleration [place] 593.0 cm/s MV Pressure Half Time 71.8 ms MV Area PHT 3.1 cm MV Deceleration Time 257.0 ms TV Peak Velocity 255.5 cm/s TV Peak E Velocity 85.8 cm/s TV Peak A Velocity 62.4 cm/s TV E to A Ratio 1.4 Right Atrial Pressure 5.0 mmHg PV Peak Velocity 126.5 cm/s PV Peak Gradient 6.4 mmHg PV Mean Velocity 87.0 cm/s PV Mean Gradient 3.5 mmHg PV Velocity Time Integral 21.2 cm LV E' Lateral Velocity 7.0 cm/s Mitral E to LV E' Lateral Ratio 15.0 LV E' Septal Velocity 7.5 cm/s Mitral E to LV E' Septal Ratio 14.1
[2017-08-18 16:00] VITALS: BP 110/60
--- NOTE | 2017-08-18 17:23 | PN- Cardiology ---
Subjective Subjective: The patient continues to to complain of diarrhea. No chest pain. No palpitations. No shortness of breath. Objective Vital Signs and I&Os Vital Signs Date Time Temp Pulse Resp B/P B/P Pulse O2 O2 Flow FiO2 Mean Ox Delivery Rate 08/18 08 97.3 80 20 120/68 98 Room Air 08/17 2300 97.2 80 20 120/60 98 Room Air Intake & Output 08/18 1600 08/18 0808/18 0000 08/17 1600 08/17 0800 08/17 0000 Intake Total 500 240 360 700 330 430 Output Total 150 400 950 Balance 500 240 360 550 -70 -520 Intake, IV 20 120 120 100 130 230 Intake, Oral 480 120 240 600 200 200 Number 1 1 2 4 2 Bowel Movements Output, Stool 650 Output, Urine 150 400 300 Patient 193 lb 188 lb Weight Weight Bed scale Bed scale Measurement Method Physical Exam: Gen: NAD HEENT: normal Lungs: clear to auscultation, normal resp. effort Heart: RRR, S1, S2, 2/6 systolic murmur Abdomen: Soft, nontender, no masses Extremities: No clubbing, cyanosis, or edema. Neuro: Alert and oriented x 3, cranial nerves intact Current Medications: Current Medications Sig/Sarika Start time Last Medication Dose Route Stop Time Status Admin Acetaminophen 650 MG Q6P PRN 08/17 2145 AC 08/18 PO 1630 Acetaminophen 1,000 MG Q6P PRN 08/15 2345 AC 08/16 N/A 1 UNIT IV 1953 Azithromycin 500 MG DAILY 08/18 1400 AC 08/18 PO 1623 Calcium/Vitamin D 500 MG DAILY 08/18 0942 AC 08/18 PO 1139 Ceftriaxone Sodium 1,000 MG DAILY 08/16 0900 DC 08/18 IV 0902 Ergocalciferol 50,000 IU Q168 08/18 1400 AC 08/18 PO 1623 Ferrous Sulfate 325 MG TID 08/16 2100 AC 08/18 PO 1623 Heparin Sodium 5,000 UNIT Q8 08/16 06 AC 08/16 (Porcine) SC 2143 Insulin Aspart 0 TIDAC 08/16 1200 AC 08/18 SC 1623 Loperamide HCl 2 MG Q3P PRN 08/17 1315 DC PO Magnesium Oxide 400 MG ONE ONE 08/18 0900 DC 08/18 PO 08/18 0901 0902 Metronidazole 500 MG Q8H 08/16 0600 DC 08/18 N/A 1 UNIT IV 0510 Omeprazole 40 MG DAILY AC 08/17 1430 AC 08/18 PO 0515 Ondansetron HCl 4 MG Q6P PRN 08/16 2300 AC 08/16 IV 2317 Potassium Chloride 40 MEQ BID 08/18 0900 AC 08/18 PO 08/18 2101 0902 Potassium Chloride 20 MEQ ONCE ONE 08/18 0630 DC 08/18 PO 08/18 0631 0635 Results Last 48 Hrs of Labs/Mics: Laboratory Tests 08/18/17 0355: Anion Gap 14, Estimated GFR > 60, Glucose 288 H, Calcium 7.6 L, Phosphorus 2.5 , Magnesium 1.9, Total Bilirubin 0.2, Direct Bilirubin 0.2, AST 27, ALT 46, Alkaline Phosphatase 74, Total Protein 5.3 L, Albumin 2.6 L, 25-OH Vitamin D Total 12.0 L, CBC w Diff NO MAN DIFF REQ, RBC 4.11 L, MCV 71.6 L, MCH 23.3 L , MCHC 32.5 L, RDW 18.4 H, MPV 9.5, Gran % 56.0, Lymphocytes % 27.1, Monocytes % 9.0, Eosinophils % 7.5 H, Basophils % 0.4, Absolute Granulocytes 3.2, Absolute Lymphocytes 1.5, Absolute Monocytes 0.5, Absolute Eosinophils 0.4, Absolute Basophils 0 08/17/17 0445: Anion Gap 14, Estimated GFR > 60, Glucose 278 H, Calcium 7.7 L, Phosphorus 2.8 , Magnesium 2.1, Total Bilirubin 0.3, AST 58 H, ALT 62 H, Albumin 2.6 L, CBC w Diff NO MAN DIFF REQ, RBC 4.09 L, MCV 72.1 L, MCH 23.3 L, MCHC 32.3 L, RDW 18.6 H, MPV 9.0, Gran % 62.7, Lymphocytes % 19.1 L, Monocytes % 11.9 H, Eosinophils % 6.0 H, Basophils % 0.3, Absolute Granulocytes 3.4, Absolute Lymphocytes 1.0 L, Absolute Monocytes 0.6, Absolute Eosinophils 0.3, Absolute Basophils 0 Recent Imaging Studies: Echocardiogram 08/16/17: 1. Normal EF of 60%. 2. Mild left ventricular hypertrophy. 3. Mild left atrial enlargment. 4. Mild mitral regurgitation. 5. Mild tricuspid regurgitation. 6. Moderate aortic stenosis with mild aortic regurgitation. 7. Trace pulmonic regurgitation. Assessment/Plan Assessment/Plan Assessment: 1. Hypertension 2. Diabetes mellitus 3. Infectious colitis 4. Abnormal EKG 5. Moderate aortic stenhosis 5. Negative troponin Plan: * Continue current cardiac medications. * No further cardiac workup is indicated at this time * Follow up 1-2 weeks after discharge Continue telemetry? Yes
[2017-08-18 23:34] VITALS: BP 118/80
--- NOTE | 2017-08-19 06:12 | Discharge Summary ---
Hospital Course Course Hospital Course: A: 67-year-old lady with a past medical history of CHF, hyperlipidemia, hypertension, diabetes mellitus, drug-induced hepatitis, CHF presenting for 2-3 day history of lethargy and weakness most likely 2/2 to sepsis of GI origin with positive Campylobacter culture. P: #Severe sepsis 2/2 persistent diarrhea ?possible colitis vs gastroenteritis GI as the possible source given the diarrhea, fevers, and low WBC/leukopenia. She was lethargic upon presentation per family. Head CT was negative. CT abd revealed colitis of transverse colon, diffusely dilated small bowel loops suggesting ileus, and prominent mesenteric lymph nodes which might be reactive Received 3+ L NS. LA resolved. Given ceftaz, metronidazole, vanc x1 in ED Stool cultures growing campylobacter -switched from ceftriaxone and medtronidazole to azithromycin 500mg po daily -f/u stool cultures -cont zofran prn #Acute hypoxic respiratory failure related to sepsis with hx of CHF CXR: Mild cardiomegaly and pulmonary venous congestion. No overt pulmonary edema. Ischemic ST depressions on her ECG but has not ruled in for an [place]. Did no diurese per cardiology given diarrhea and dehydration Echo: EF60% with moderate aortic stenosis with mild aortic regurgitation. 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 -cont novolog sliding scale -currently holding metformin and empagliflozin -consider restarting home t2d medications #Chronic microcytic anemia Iron studies reveal: low iron, normal ferritin and TIBC Current H/H 9.6/29.4 -h/h stable and at baseline, cont to monitor -cont iron pills with meals TID #Transaminitis Increase in LFTS now normalized -most likely due to lab variation -consider RUQ if elevated lfts persists #Acute kidney injury - resolved with fluids Initial creatinine 1.2, baseline 0.7 Current 0.9 -cont to monitor #hypocalcemia Low calcium (corrected) and vit D Patient takes supplementation home. #low iron Fe 13 with borderline ferritin levels #Hypokalemia -cont to monitor and replnish as needed #Abnormal imaging CT also found 1) tiny nonobstructing LEFT kidney stone, 2) splenomegaly, 3) heavy vascular calcification of the aorta, -outpatient follow up #Healthy diet #FULL CODE #DVT prophylaxis - SC heparin Allergies: Coded Allergies: adhesive (ITCHING 01/21/16) ampicillin (RASH 10/31/16) dulaglutide (From [facility]) (PANCREATITIS 08/15/17) lanolin (RASH 08/15/17) wool (RASH 08/15/17) Discharge Instructions Medications at Discharge Discharge Medications: Stop taking the following medications: Sitagliptin Phosphate (Januvia) 100 MG TABLET ORAL DAILY Continue taking these medications: Loratadine (Claritin) 10 MG TABLET 1 Tablet ORAL DAILY Guaifenesin (Mucinex) 600 MG TAB.ER.12H 1 Tablet ORAL TWICE DAILY Metformin HCl (Glucophage) 1,000 MG TABLET 1 Tablet ORAL TWICE DAILY Amlodipine Besylate (Norvasc) 5 MG TABLET 1 Tablet ORAL DAILY Instructions: This medication is not on the patient list but was filled recently August 01 confirm if she is taking Furosemide (Furosemide) 40 MG TABLET 1 Tablet ORAL DAILY Qty = 90 Potassium Chloride (Potassium Chloride) 20 MEQ TAB.ER.PRT 1 Tablet ORAL DAILY Qty = 90 Fenofibrate Nanocrystallized (Fenofibrate) 145 MG TABLET 1 Tablet ORAL DAILY Qty = 30 Rosuvastatin Calcium (Crestor) 40 MG TABLET 1 Tablet ORAL DAILY Qty = 90 Clotrimazole/Betamethasone Dip (Clotrimazole-Betamethasone Crm) 1 %-0.05 % CREAM..G. 1 Application On the skin TWICE DAILY Qty = 45 Instructions: apply to affected area(s) Empagliflozin (Jardiance) 25 MG TABLET 1 Tablet ORAL DAILY Qty = 90 Insulin Glargine,Hum.rec.anlog (Toujeo Solostar) 300 UNIT/ML (1.5 ML) INSULN.PEN 26 Units Inject into fatty tissue Every night Qty = 4 Calcium Carbonate/Vitamin D3 (Calcium 500 + D Tablet) (Unknown Strength) TABLET 1 Tablet ORAL TWICE DAILY Qty = 30 Beta-Carotene(A) W-C & E/Min (Vision Vitamins) 1 EACH TABLET 1 Tablet ORAL TWICE DAILY Multiple Vitamin (Multivitamins) 1 EACH TABLET 1 Tablet ORAL DAILY Lansoprazole (Prevacid) (Unknown Strength) CAPSULE.DR 1 Tablet ORAL DAILY Qty = 30 Lisinopril (Lisinopril) 40 MG TABLET 1 Tablet ORAL DAILY Qty = 90 Start taking the following new medications: Azithromycin (Azithromycin) 500 MG TABLET 1 Tablet ORAL DAILY Qty = 1 No Refills Instructions: PLEASE TAKE ON AUGUST 20
[2017-08-19] MEDS ORDERED: AZITHROMYCIN500 M3 PO ×2 (06:15→14:09)
[2017-08-19] MEDS ORDERED: FERROUS SULFAT325 M3 PO ×2 (06:34→14:09)
[2017-08-19] MEDS ORDERED: VITAMIN D250000 UNIT PO ×3 (06:34→14:09)
--- NOTE | 2017-08-19 06:35 | Patient Discharge Instructions ---
Discharge Instructions General Discharge Information Special Instructions: Please follow up with your PCP in 1 week. Acute Coronary Syndrome Inclusion Criteria At DC or during hospital stay patient has or had the following: Discharge Core Measures Meds if any: Prescribed or Continued at Discharge Meds if any: NOT Prescribed or Continued at Discharge Congestive Heart Failure Inclusion Criteria At DC or during hospital stay patient has or had the following: Discharge Core Measures Meds if any: Prescribed or Continued at Discharge Meds if any: NOT Prescribed or Continued at Discharge Cerebrovascular accident Inclusion Criteria At DC or during hospital stay patient has or had the following: CVA/TIA Diagnosis No Discharge Core Measures Meds if any: Prescribed or Continued at Discharge Meds if any: NOT Prescribed or Continued at Discharge Venous thromboembolism Discharge Core Measures - Per Current guidelines, there needs to be overlap - treatment for the first 5 days of Warfarin therapy. - If discharged on Warfarin prior to 5 days of - overlap therapy, the patient will need to be - assessed for post discharge needs including - *Post discharge parental anticoagulation - *Warfarin and/or parental anticoagulation education - *Follow up date to check INR post discharge Meds if any: Prescribed or Continued at Discharge Note: Overlap Therapy is Warfarin and Anticoagulant Meds if any: NOT Prescribed or Continued at Discharge
[2017-08-19 07:10] VITALS: BP 130/62
--- NOTE | 2017-08-19 07:12 | PN- Housestaff ---
Jessica UMANA,[facility] 08/19/17 0711: Subjective Follow-up For: - Severe sepsis 2/2 persistent diarrhea ?possible colitis vs gastroenteritis - Acute hypoxic respiratory failure related to sepsis ?CHF Tele-Events Since Last Visit: NSR HR 72-92 Subjective: Patient says her diarrhea has improved and her stools are more formed. Denies any abdominal pain, fever/chills, nausea or vomiting. Review of Systems Constitutional: Reports: no symptoms. EENTM: Reports: no symptoms. Cardiovascular: Reports: no symptoms. Respiratory: Reports: no symptoms. Gastrointestinal: Reports: no symptoms. Genitourinary: Reports: no symptoms. Musculoskeletal: Reports: no symptoms. Skin: Reports: no symptoms. Neurological/Psychological: Reports: no symptoms. Hematologic/Endocrine: Reports: no symptoms. Immunologic/Allergic: Reports: no symptoms. Objective Last 24 Hrs of Vital Signs/I&O Vital Signs Date Time Temp Pulse Resp B/P B/P Pulse O2 O2 Flow FiO2 Mean Ox Delivery Rate 08/19 0710 97.9 80 20 130/62 96 Room Air 08/18 2334 98.7 86 18 118/80 99 Room Air 08/18 1600 97.1 78 20 110/60 97 Room Air Intake & Output 08/19 1600 08/19 0800 08/19 0000 Intake Total 220 400 Output Total 250 Balance -30 400 Intake, Oral 220 400 Number 1 1 Bowel Movements Output, Urine 250 Physical Exam General Appearance: Alert, Oriented X3, Cooperative, No Acute Distress Skin: No Rashes, No Breakdown Cardiovascular: Regular Rate, Normal S1, Normal S2, Systolic murmur Lungs: Clear to Auscultation, Normal Air Movement Abdomen: Normal Bowel Sounds, Soft, No Tenderness Extremities: No Clubbing, No Cyanosis, No Edema Current Medications: Current Medications Sig/Sarika Start time Last Medication Dose Route Stop Time Status Admin Acetaminophen 650 MG .STK-MED ONE 08/19 0107 DC PO 08/19 0108 Acetaminophen 650 MG .STK-MED ONE 08/18 1629 DC PO 08/18 1630 Acetaminophen 650 MG Q6P PRN 08/17 2145 AC 08/19 PO 0109 Acetaminophen 1,000 MG Q6P PRN 08/15 2345 AC 08/16 N/A 1 UNIT IV 1952 Azithromycin 500 MG DAILY 08/18 1400 AC 08/19 PO 0859 Calcium/Vitamin D 500 MG DAILY 08/18 0942 AC 08/19 PO 0859 Ergocalciferol 50,000 IU Q168 08/18 1400 AC 08/18 PO 1623 Ferrous Sulfate 325 MG TID 08/16 2100 AC 08/19 PO 0859 Heparin Sodium 5,000 UNIT Q8 08/16 0600 AC 08/16 (Porcine) SC 2143 Insulin Aspart 0 TIDAC 08/16 1200 AC 08/19 SC 1215 Omeprazole 40 MG DAILY AC 08/17 1430 AC 08/19 PO 0641 Ondansetron HCl 4 MG Q6P PRN 08/16 2300 AC 08/16 IV 2317 Potassium Chloride 40 MEQ BID 08/18 0900 DC 08/18 PO 08/18 2102123 Last 24 Hrs of Lab/Chano Results Last 24 Hrs of Labs/Mics: Laboratory Tests 08/19/17 0625: Anion Gap 11, Estimated GFR > 60, BUN/Creatinine Ratio 41.7 H, Calcium 8.1 L, Magnesium 1.8, Albumin 2.6 L, CBC w Diff NO MAN DIFF REQ, RBC 3.80 L, MCV 71.1 L, MCH 24.5 L, MCHC 34.5, RDW 18.6 H, MPV 9.4, Gran % 53.6, Lymphocytes % 32.9, Monocytes % 7.4, Eosinophils % 5.7 H, Basophils % 0.4, Absolute Granulocytes 2.3, Absolute Lymphocytes 1.4, Absolute Monocytes 0.3, Absolute Eosinophils 0.2, Absolute Basophils 0 Assessment/Plan Assessment: 67-year-old lady with a past medical history of CHF, hyperlipidemia, hypertension, diabetes mellitus, drug-induced hepatitis, CHF presenting for 2-3 day history of lethargy and weakness most likely 2/2 to sepsis of GI origin with positive Campylobacter culture. P: #Severe sepsis 2/2 persistent diarrhea ?possible colitis vs gastroenteritis GI as the possible source given the diarrhea, fevers, and low WBC/leukopenia. Received 3+ L NS. LA resolved. Given ceftaz, metronidazole, vanc x1 in ED Stool cultures growing campylobacter -switched from ceftriaxone and medtronidazole to azithromycin 500mg po daily.Day 4 of antibiotics. Will send her home on azithromycin for 1 more day. -cont zofran prn #Acute hypoxic respiratory failure related to sepsis with hx of CHF CXR: Mild cardiomegaly and pulmonary venous congestion. No overt pulmonary edema. Ischemic ST depressions on her ECG but has not ruled in for an TX. Did no diurese per cardiology given diarrhea and dehydration Echo: EF60% with moderate aortic stenosis with mild aortic regurgitation. -cont cardiology recommendations -holding home lasix. Resume on discharge. 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 -cont novolog sliding scale -currently holding metformin and empagliflozin -consider restarting home t2d medications #Chronic microcytic anemia Iron studies reveal: low iron, normal ferritin and TIBC Current H/H 9.6/29.4 -h/h stable and at baseline, cont to monitor -cont iron pills with meals TID #Transaminitis Increase in LFTS now normalized -most likely due to lab variation -consider RUQ if elevated lfts persists #Acute kidney injury - resolved with fluids Initial creatinine 1.2, baseline 0.7 Current 0.6 -cont to monitor #hypocalcemia Low calcium (corrected) and vit D Patient takes supplementation home. #Hypokalemia -cont to monitor and replnish as needed #Healthy diet #FULL CODE #DVT prophylaxis - SC heparin Problem List: 1. Colitis 2. Sepsis 3. Acute electrocardiogram changes Pain Ratin Pain Location: NA Pain Goal: Remain pain free Pain Plan: NA Tomorrow's Labs & Rationales: None Sharla Rose MD 08/19/17 1416: Attending MD Review Statement Attending Statement Attending MD Statement: examined this patient, discuss w/resident/PA/[employer], agreed w/resident/PA/[employer], reviewed EMR data (avail) Attending Assessment/Plan: 67F PMH CHF, hyperlipidemia, hypertension, diabetes mellitus, drug-induced hepatitis admitted to ICU with sepsis secondary to Campylobacter colitis, course complicated by ANIBAL, acute respiratry failure with saturation 89%, and ischemic EKG changes without rise in troponin. Patient treated initially with Vancomycin , Ceftriaxone, Flagyl, switched to Azithromycin once stool culture grew Campylobacter, and has improved. EKG now NSR and no telemetry events, renal function normalized, eating well, without pain. 1. Sepsis secondary to Campylobacter colitis 2. Acute hypoxemic respiratory failure (resolved) 3. Acute EKG changes (resolved) Plan - Stable for discharge - Continue Azithromycin - Continue home medications - Outpatient cardiology follow up
[2017-08-19 08:03] LABS: ABSOLUTE BASOPHIL COUNT 0 /CUMM (0.0-0.2); ABSOLUTE EOSINOPHIL COUNT 0.2 /CUMM (0.0-0.7); ABSOLUTE GRANULOCYTE CT 2.3 /CUMM (1.4-6.5); ABSOLUTE LYMPH COUNT 1.4 /CUMM (1.2-3.4); ABSOLUTE MONOCYTE COUNT 0.3 /CUMM (0.10-0.60); BASOPHIL % 0.4 % (0.0-2.0); EOSINOPHIL % 5.7 % (0-5); GRANULOCYTE % 53.6 % (42.2-75.2); MEAN CORPUSCULAR HGB 24.5 PG (27.0-31.0); MEAN CORPUSCULAR HGB CONC 34.5 G/DL (33.0-37.0); MEAN CORPUSCULAR VOLUME 71.1 FL (81.0-99.0); MEAN PLATELET VOLUME 9.4 FL (7.4-10.4); PLATELET COUNT 187 /CUMM (130-400); RBC DISTRIBUTION WIDTH 18.6 % (11.5-14.5); WHITE BLOOD CELL COUNT 4.2 /CUMM (4.8-10.8)
--- NOTE | 2017-08-19 11:43 | PN- Cardiology ---
Subjective Subjective: Patient is doing well. Sitting at the bedside. Dressed and anxious to go home. No new issues or symptoms. Objective Vital Signs and I&Os Vital Signs Date Time Temp Pulse Resp B/P B/P Pulse O2 O2 Flow FiO2 Mean Ox Delivery Rate 08/19 0710 97.9 80 20 130/62 96 Room Air 08/18 2334 98.7 86 18 118/80 99 Room Air 08/18 1600 97.1 78 20 110/60 97 Room Air Intake & Output 08/19 1600 08/19 0800 08/19 0000 08/18 1600 08/18 0808/18 0000 Intake Total 220 400 500 240 360 Output Total 250 -30 400 500 240 360 Intake, IV 20 120 120 Intake, Oral 220 400 480 120 240 Number 1 1 1 1 Bowel Movements Output, Urine 250 Patient 193 lb Weight Weight Bed scale Measurement Method Physical Exam: General Appearance: well developed/nourished, alert, awake, oriented Head: normal HEENT: Normal Neck: supple, JVP normal, carotid upstrokes normal bilaterally, no masses or thyromegaly; soft bilateral bruits Respiratory: chest non-tender, clear to auscultation and percussion bilaterally Cardiovascular: regular rate/rhythm, normal S1, S2, 2/6 systolic ejection murmur Abdomen: normal bowel sounds, soft, non-tender Extremities: normal inspection, no edema Vascular: Pulses are 2+ and equal bilaterally Neurologic: Grossly normal/nonfocal Current Medications: Current Medications Sig/Sarika Start time Last Medication Dose Route Stop Time Status Admin Acetaminophen 650 MG .STK-MED ONE 08/19 0107 DC PO 08/19 0108 Acetaminophen 650 MG .STK-MED ONE 08/18 1629 DC PO 08/18 1630 Acetaminophen 650 MG Q6P PRN 08/17 2145 AC 08/19 PO 0109 Acetaminophen 1,000 MG Q6P PRN 08/15 2345 AC 08/16 N/A 1 UNIT IV 1953 Azithromycin 500 MG DAILY 08/18 1400 AC 08/19 PO 0859 Calcium/Vitamin D 500 MG DAILY 08/18 0942 AC 08/19 PO 0859 Ergocalciferol 50,000 IU Q168 08/18 1400 AC 08/18 PO 1623 Ferrous Sulfate 325 MG TID 08/16 2100 AC 08/19 PO 0859 Heparin Sodium 5,000 UNIT Q8 08/16 0600 AC 08/16 (Porcine) SC 214 Insulin Aspart 0 TIDAC 08/16 1200 AC 08/19 SC 0652 Loperamide HCl 2 MG Q3P PRN 08/17 1315 DC PO Omeprazole 40 MG DAILY AC 08/17 1430 AC 08/19 PO 0641 Ondansetron HCl 4 MG Q6P PRN 08/16 2300 AC 08/16 IV 2317 Potassium Chloride 40 MEQ BID 08/18 0900 DC 08/18 PO 08/18 2101 2124 Results Last 48 Hrs of Labs/Mics: Laboratory Tests 08/19/17 0625: Anion Gap 11, Estimated GFR > 60, BUN/Creatinine Ratio 41.7 H, Calcium 8.1 L, Magnesium 1.8, Albumin 2.6 L, CBC w Diff NO MAN DIFF REQ, RBC 3.80 L, MCV 71.1 L, MCH 24.5 L, MCHC 34.5, RDW 18.6 H, MPV 9.4, Gran % 53.6, Lymphocytes % 32.9, Monocytes % 7.4, Eosinophils % 5.7 H, Basophils % 0.4, Absolute Granulocytes 2.3, Absolute Lymphocytes 1.4, Absolute Monocytes 0.3, Absolute Eosinophils 0.2, Absolute Basophils 0 08/18/17 0355: Anion Gap 14, Estimated GFR > 60, Glucose 288 H, Calcium 7.6 L, Phosphorus 2.5 , Magnesium 1.9, Total Bilirubin 0.2, Direct Bilirubin 0.2, AST 27, ALT 46, Alkaline Phosphatase 74, Total Protein 5.3 L, Albumin 2.6 L, 25-OH Vitamin D Total 12.0 L, CBC w Diff NO MAN DIFF REQ, RBC 4.11 L, MCV 71.6 L, MCH 23.3 L , MCHC 32.5 L, RDW 18.4 H, MPV 9.5, Gran % 56.0, Lymphocytes % 27.1, Monocytes % 9.0, Eosinophils % 7.5 H, Basophils % 0.4, Absolute Granulocytes 3.2, Absolute Lymphocytes 1.5, Absolute Monocytes 0.5, Absolute Eosinophils 0.4, Absolute Basophils 0 Assessment/Plan Assessment/Plan Assessment: 1. Hypertension 2. Diabetes mellitus 3. Infectious colitis 4. Abnormal EKG 5. Moderate aortic stenhosis 5. Negative troponin Plan: * Continue current cardiac medications. * No further cardiac workup is indicated at this time * Follow up 1-2 weeks after discharge with Dr. Morales Continue telemetry? No
== END 2017-08-19 14:45 | DRG 871 ==
LOC: ERH 17:50 → CRI 22:47 → ERHI 22:47 → ENRESERV 08-16 00:51 → CRI 08-16 01:50 → 1NO 08-18 18:53 → ENPENDDIS 08-19 13:44 → ENTRNSPT 08-19 14:19 → EDTRNSPTSTS 08-19 14:32 → EDTRNSPT 08-19 14:32 → 1NO 08-19 14:45 → CMPTRNSPT 08-19 14:58
PROVIDERS: Physician Assistant Medical; Preventive Medicine Public Health & General Preventive Medicine; Student in an Organized Health Care Education/Training Program
DX: A41.9 Sepsis, unspecified organism (principal); J96.01 Acute respiratory failure with hypoxia; N17.9 Acute kidney failure, unspecified; E87.2 Acidosis; A04.5 Campylobacter enteritis; E87.1 Hypo-osmolality and hyponatremia; E11.65 Type 2 diabetes mellitus with hyperglycemia; E11.8 Type 2 diabetes mellitus with unspecified complications; Z79.4 Long term (current) use of insulin; Z79.84 Long term (current) use of oral hypoglycemic drugs; E86.0 Dehydration; R94.31 Abnormal electrocardiogram [ECG] [EKG]; D50.9 Iron deficiency anemia, unspecified; D72.819 Decreased white blood cell count, unspecified; E87.6 Hypokalemia; I11.0 Hypertensive heart disease with heart failure; I50.9 Heart failure, unspecified; R74.0 Nonspecific elevation of levels of transaminase and lactic acid dehydrogenase [LDH]; E78.5 Hyperlipidemia, unspecified; Z88.1 Allergy status to other antibiotic agents; I35.0 Nonrheumatic aortic (valve) stenosis
CPT/HCPCS: 1NSP; CCU; ERO; 36415; 36592; 71045; 74176; 80307; 81001; 82436; 87015; 87040; 87045; 87071; 87086; 87328; 87329; 87899; 87899-59; 93005; 93010; 93306; 96374; 96375; 99291; G0480; J0131; J0456; J0696; J0713; J1644; J1815; J2405; J3370